=== PATIENT | male | born 1960 | race Caucasian/White ===

== ENCOUNTER 2017-03-27 20:26 | Emergency (ER) | payer OTHER ==
[2017-03-27 20:59] VITALS: BP 128/58; PULSE 63; RESP 18; TEMP 97.8
--- NOTE | 2017-03-27 21:21 | ED ---
Wound/Laceration HPI - General Chief Complaint: Wound/Laceration Stated Complaint: thumb lac Time Seen by Provider: 03/27/17 21:08 Source: patient, RN notes reviewed, old records reviewed Mode of arrival: ambulatory Limitations: no limitations - History of Present Illness Initial Comments: 56-year-old male presents emergency Department with right thumb laceration. Patient reports that he cut it while sharpening a knife. Denies any difficulty extending it. He reports his tetanus is up-to-date. Denies any nausea vomiting , chest pain, shortness of breath, other injury or laceration, abodiminal pain, dysuria, hematuria, back pain. - Related Data Home Medications Medication Instructions Recorded Confirmed HYDROcodone/APAP 7.5-325MG [[place] 1 tab PO Q8H PRN 06/02/16 03/27/17 7.5-325] Acetaminophen Tab [Tylenol] 1,000 mg PO Q6H 06/03/16 03/27/17 Escitalopram [Lexapro] 10 mg PO DAILY 06/03/16 03/27/17 Gabapentin [Neurontin] 300 mg PO TID 06/03/16 03/27/17 Ibuprofen [Motrin] 400 mg PO Q8H PRN 06/03/16 03/27/17 Lisinopril 40 mg PO DAILY 06/03/16 03/27/17 clonazePAM [KlonoPIN] 0.5 mg PO TID 06/03/16 03/27/17 Allergies Allergy/AdvReac Type Severity Reaction Status Date / Time No Known Allergies Allergy Verified 03/27/17 20:59 Review of Systems ROS Statement: Those systems with pertinent positive or pertinent negative responses have been documented in the HPI. ROS Other: All systems not noted in ROS Statement are negative. Past Medical History Past Medical History: Hypertension History of Any Multi-Drug Resistant Organisms: None Reported Past Surgical History: Appendectomy, Joint Replacement, Orthopedic Surgery Past Psychological History: Anxiety, Depression Smoking Status: Current every day smoker Past Alcohol Use History: Occasional Past Drug Use History: Marijuana General Exam - General Exam Comments Initial Comments: Pleasant 56-year-old male. No distress. Limitations: no limitations General appearance: alert, in no apparent distress Head exam: Present: atraumatic, normocephalic, normal inspection Eye exam: Present: normal appearance, PERRL, EOMI. Absent: scleral icterus, conjunctival injection, periorbital swelling ENT exam: Present: normal exam, mucous membranes moist Neck exam: Present: normal inspection. Absent: tenderness, meningismus, lymphadenopathy Respiratory exam: Present: normal lung sounds bilaterally. Absent: respiratory distress, wheezes, rales, rhonchi, stridor Cardiovascular Exam: Present: regular rate, normal rhythm, normal heart sounds. Absent: systolic murmur, diastolic murmur, rubs, gallop, clicks GI/Abdominal exam: Present: soft, normal bowel sounds. Absent: distended, tenderness, guarding, rebound, rigid Extremities exam: Present: normal inspection, full ROM, normal capillary refill , other (right thumb lacreation over DIP measuring 1.5 cm. Not deep, full range of motion, no tendon involvement. ). Absent: tenderness, pedal edema, joint swelling, calf tenderness Back exam: Present: normal inspection Neurological exam: Present: alert, oriented X3, CN II-XII intact Psychiatric exam: Present: normal affect, normal mood Skin exam: Present: warm, dry, intact, normal color. Absent: rash Course Vital Signs 03/27/17 20:55 Temperature 97.8 F Pulse Rate 63 Respiratory 18 Rate Blood Pressure 128/58 O2 Sat by Pulse 96 Oximetry Procedures - Laceration Laceration #1 Consent Obtained: verbal consent Site: hand (right thumb) Size (cm): 1 Depth: simple, single layer Anesthetic Used: benzocaine 0.25% Anesthesia Technique: local infiltration Amount (mls): 3 Pre-repair: wound explored, irrigated extensively Type of Sutures: nylon Size of Sutures: 5-0 Number of Sutures: 3 Technique: simple, interrupted Patient Tolerated Procedure: well, no complications Medical Decision Making - Medical Decision Making Patient is a 56 year old male with right thumb laceration. Up to date on tetanus. Full range of motion, no evidence of tendon involvment. patient wound was cleaned with betadine and irrigated. Wound was well approximated with 3 sutures. PAtient understands return parameters and will comply. Patient agrees to treatment plan. Disposition Clinical Impression: Thumb laceration Disposition: HOME SELF-CARE Condition: Good Instructions: Finger Laceration (ED) Additional Instructions: Please return to the emergency room in 8-10 days to have sutures removed. Please leave wound covered for the first 24-48 hours and then leave open to air after that time. Please use clean soap and water to clean the suture area to prevent scabbing over the top of your sutures. Please watch for any signs of infection which may include but not limited to increased pain, swelling, redness , fever or chills. Please return to the emergency room if any signs of infection do occur. Please return to the emergency room for any other concerns or complications. Referrals: Kyra Sumner MD [Primary Care Provider] - 1-2 days Time of Disposition: 21:20
== END 2017-03-27 21:36 | disposition home or self-care (01) ==
LOC: EC 20:26
DX: S61.011A Laceration without foreign body of right thumb without damage to nail, initial encounter (principal); I10 Essential (primary) hypertension; F32.9 Major depressive disorder, single episode, unspecified; F41.9 Anxiety disorder, unspecified; F17.200 Nicotine dependence, unspecified, uncomplicated; Z79.899 Other long term (current) drug therapy; W26.0XXA Contact with knife, initial encounter; Y93.89 Activity, other specified
CPT/HCPCS: 99283

== ENCOUNTER 2018-12-29 | Emergency (ER) | payer OTHER ==
[2018-12-29 00:09] VITALS: RESP 20
[2018-12-29 01:02] LABS: Basophils % (A) 0 %; Eosinophils # (A) 0.3 k/uL (0-0.7); Eosinophils % (A) 2 %; HCT 43.2 % (39.0-53.0); HGB 13.8 gm/dL (13.0-17.5); Lymphocytes % (A) 25 %; MCH 31.3 pg (25.0-35.0); MCHC 31.9 g/dL (31.0-37.0); MCV 98.1 fL (80.0-100.0); Mean Platelet Volume 6.9; Monocytes # (A) 0.4 k/uL (0-1.0); Monocytes % (A) 4 %; Neutrophils # (A) 8.2 k/uL (1.3-7.7); Neutrophils % (A) 68 %; Platelet Count 208 k/uL (150-450); RDW 12.9 % (11.5-15.5); WBC 12.1 k/uL (3.8-10.6)
[2018-12-29 01:17] LABS: ALT 36 U/L (21-72); AST 34 U/L (17-59); Acetaminophen <10.0 ug/mL; Alcohol 64 mg/dL; Alkaline Phosphatase 67 U/L (38-126); Anion Gap 12 mmol/L; Blood Urea Nitrogen 20 mg/dL (9-20); Calcium 8.8 mg/dL (8.4-10.2); Carbon Dioxide 23 mmol/L (22-30); Chloride 99 mmol/L (98-107); Glucose 190 mg/dL (74-99); Potassium 3.7 mmol/L (3.5-5.1); Salicylate <1.0 mg/dL; Sodium 134 mmol/L (137-145); Total Bilirubin 0.4 mg/dL (0.2-1.3); Total Protein 6.3 g/dL (6.3-8.2)
--- NOTE | 2018-12-29 01:56 | ED ---
Overdose HPI - General Chief Complaint: Overdose Stated Complaint: overdose Time Seen by Provider: 12/29/18 00:11 Source: patient Mode of arrival: EMS Limitations: no limitations - History of Present Illness Initial Comments: 58-year-old male patient is transported to the emergency department this evening after his son called for patient being unresponsive and having slow breathing. Upon EMS arrival patient was breathing only a few times per minute. They did administer Narcan which may patient more alert and responsive. Upon arrival patient does admit to drinking 4 "tall boy" beers, taking norco, and taking a oxycodone given to him by a family member. He does admit to smoking marijuana but denies any other street drug use. Patient states he is currently feeling well denies any physical concerns or symptoms. Patient denies any recent rash, fever, chills, shortness breath, chest pain, abdominal pain, nausea , vomiting, diarrhea, constipation, back pain, numbness, tingling, dizziness, weakness, hematuria, dysuria, urinary urgency, urinary frequency, headache, visual changes, or any other complaints. - Related Data Home Medications Medication Instructions Recorded Confirmed HYDROcodone/APAP 7.5-325MG [[place] 1 tab PO Q8H PRN 06/02/16 12/29/18 7.5-325] Acetaminophen Tab [Tylenol] 1,000 mg PO Q6H 06/03/16 12/29/18 Escitalopram [Lexapro] 10 mg PO DAILY 06/03/16 12/29/18 Gabapentin [Neurontin] 300 mg PO TID 06/03/16 12/29/18 Ibuprofen [Motrin] 400 mg PO Q8H PRN 06/03/16 12/29/18 Lisinopril 40 mg PO DAILY 06/03/16 12/29/18 clonazePAM [KlonoPIN] 0.5 mg PO TID 06/03/16 12/29/18 Allergies Allergy/AdvReac Type Severity Reaction Status Date / Time No Known Allergies Allergy Verified 03/27/17 20:59 Review of Systems ROS Statement: Those systems with pertinent positive or pertinent negative responses have been documented in the HPI. ROS Other: All systems not noted in ROS Statement are negative. Past Medical History Past Medical History: Hypertension History of Any Multi-Drug Resistant Organisms: None Reported Past Surgical History: Appendectomy, Joint Replacement, Orthopedic Surgery Past Psychological History: Anxiety, Depression Smoking Status: Current every day smoker Past Alcohol Use History: Occasional Past Drug Use History: Marijuana General Exam Limitations: no limitations General appearance: alert, in no apparent distress, other (Social well-developed , well-nourished adult male patient in no acute distress. Vital signs upon presentation are temperature 98.1F, pulse 75, respirations 20, blood pressure 134/74, pulse ox 93% on room air.) Eye exam: Present: normal appearance, PERRL, EOMI. Absent: scleral icterus, conjunctival injection, periorbital swelling ENT exam: Present: normal exam, normal oropharynx, mucous membranes moist Respiratory exam: Present: wheezes (Expiratory wheezing in the posterior lung espinal). Absent: normal lung sounds bilaterally, respiratory distress, rales, rhonchi, stridor Cardiovascular Exam: Present: regular rate, normal rhythm, normal heart sounds. Absent: systolic murmur, diastolic murmur, rubs, gallop, clicks GI/Abdominal exam: Present: soft, normal bowel sounds. Absent: distended, tenderness, guarding, rebound, rigid Neurological exam: Present: alert, oriented X3, CN II-XII intact Psychiatric exam: Present: normal affect, normal mood Skin exam: Present: warm, dry, intact, normal color. Absent: rash Course Vital Signs 12/29/18 12/29/18 00:05 02:17 Temperature 98.1 F 98.2 F Pulse Rate 75 76 Respiratory 20 20 Rate Blood Pressure 134/74 135/80 O2 Sat by Pulse 93 L 95 Oximetry Medical Decision Making - Medical Decision Making 58-year-old male patient presented to the emergency department today for evaluation after son called for decreased responsiveness and slow breathing. Physical examination was unremarkable. Patient did admit to taking multiple opiate medications and drinking alcohol. He did become more alert and responsive after receiving Narcan via EMS. Patient was monitored here in the emergency department, remained alert and appropriate throughout stay. Labs reviewed and are unremarkable. Daughter is present will transport patient home. Patient is advised to avoid mixing opiates and alcohol. He is instructed take all the medications prescribed to him. He is instructed to follow-up with his primary care physician for recheck in 1-2 days. Return parameters were discussed in detail. He verbalizes understanding and agrees with this plan. - Lab Data Result diagrams: 12/29/18 00:49 12/29/18 00:49 Lab Results 12/29/18 12/29/18 Range/Units 00:49 00:49 WBC 12.1 H (3.8-10.6) k/uL RBC 4.40 (4.30-5.90) m/uL Hgb 13.8 (13.0-17.5) gm/dL Hct 43.2 (39.0-53.0) % MCV 98.1 (80.0-100.0) fL MCH 31.3 (25.0-35.0) pg MCHC 31.9 (31.0-37.0) g/dL RDW 12.9 (11.5-15.5) % Plt Count 208 (150-450) k/uL Neutrophils % 68 % Lymphocytes % 25 % Monocytes % 4 % Eosinophils % 2 % Basophils % 0 % Neutrophils # 8.2 H (1.3-7.7) k/uL Lymphocytes # 3.0 (1.0-4.8) k/uL Monocytes # 0.4 (0-1.0) k/uL Eosinophils # 0.3 (0-0.7) k/uL Basophils # 0.0 (0-0.2) k/uL Sodium 134 L (137-145) mmol/L Potassium 3.7 (3.5-5.1) mmol/L Chloride 99 (98-107) mmol/L Carbon Dioxide 23 (22-30) mmol/L Anion Gap 12 mmol/L BUN 20 (9-20) mg/dL Creatinine 1.00 (0.66-1.25) mg/dL Est GFR (CKD-EPI)AfAm >90 (>60 ml/min/1.73 sqM) Est GFR (CKD-EPI)NonAf 82 (>60 ml/min/1.73 sqM) Glucose 190 H (74-99) mg/dL Calcium 8.8 (8.4-10.2) mg/dL Total Bilirubin 0.4 (0.2-1.3) mg/dL AST 34 (17-59) U/L ALT 36 (21-72) U/L Alkaline Phosphatase 67 (38-126) U/L Total Protein 6.3 (6.3-8.2) g/dL Albumin 4.0 (3.5-5.0) g/dL Salicylates <1.0 mg/dL Acetaminophen <10.0 ug/mL Serum Alcohol 64 mg/dL Disposition Clinical Impression: Accidental overdose Disposition: HOME SELF-CARE Condition: Good Instructions (If sedation given, give patient instructions): Adult Overdose (ED ) Additional Instructions: Do not mix opiate medications and alcohol. Take only medication prescribed to you. Follow up with your primary care physician for recheck in 1-2 days. Return to the emergency department immediately for any new, worsening, or concerning symptoms. Is patient prescribed a controlled substance at d/c from ED?: No Referrals: Kyra Sumner MD [Primary Care Provider] - 1-2 days Time of Disposition: 01:56
[2018-12-29 02:18] VITALS: BP 135/80; PULSE 76; TEMP 98.2
== END 2018-12-29 02:19 | disposition home or self-care (01) ==
LOC: EC
DX: T40.2X1A Poisoning by other opioids, accidental (unintentional), initial encounter (principal); T39.1X1A Poisoning by 4-Aminophenol derivatives, accidental (unintentional), initial encounter; T51.91XA Toxic effect of unspecified alcohol, accidental (unintentional), initial encounter; R06.2 Wheezing; I10 Essential (primary) hypertension; F32.9 Major depressive disorder, single episode, unspecified; F41.9 Anxiety disorder, unspecified; F17.200 Nicotine dependence, unspecified, uncomplicated; Z79.891 Long term (current) use of opiate analgesic; Z79.899 Other long term (current) drug therapy
CPT/HCPCS: 36415; 93005; 80053; 85025; 83520 ×2; 99284; G0480; 80320

== ENCOUNTER 2021-04-11 08:33 | Emergency (ER) | payer OTHER ==
[2021-04-11 08:45] VITALS: BP 134/79; TEMP 96.4
[2021-04-11] MEDS ORDERED: IPRATROPIUM-ALBUTEROL 3 ML NEB INHALATION STA (08:55)
--- NOTE | 2021-04-11 09:00 | ED ---
Overdose HPI - General Chief Complaint: Overdose Stated Complaint: Possible Overdose Time Seen by Provider: 04/11/21 08:44 Source: patient, EMS, RN notes reviewed Mode of arrival: EMS Limitations: no limitations - History of Present Illness Initial Comments: This a 60-year-old male presents emergency department via EMS for heroin overdose. Patient admitted to using heroin this morning, states he snorted it. Patient was given intranasal Narcan which the patient was arousable at that time now. Patient states that heavy smoker states that he always has chronic wheezing. Denies any chest pain no headache no dizziness denies any other complaints. Patient denies being suicidal or homicidal. - Related Data Home Medications Medication Instructions Recorded Confirmed HYDROcodone/APAP 7.5-325MG [[place] 1 tab PO Q8H PRN 06/02/16 12/29/18 7.5-325] Acetaminophen Tab [Tylenol] 1,000 mg PO Q6H 06/03/16 12/29/18 Escitalopram [Lexapro] 10 mg PO DAILY 06/03/16 12/29/18 Gabapentin [Neurontin] 300 mg PO TID 06/03/16 12/29/18 Ibuprofen [Motrin] 400 mg PO Q8H PRN 06/03/16 12/29/18 clonazePAM [KlonoPIN] 0.5 mg PO TID 06/03/16 12/29/18 lisinopriL 40 mg PO DAILY 06/03/16 12/29/18 Allergies Allergy/AdvReac Type Severity Reaction Status Date / Time No Known Allergies Allergy Verified 04/11/21 08:45 Review of Systems ROS Statement: Those systems with pertinent positive or pertinent negative responses have been documented in the HPI. ROS Other: All systems not noted in ROS Statement are negative. Past Medical History Past Medical History: Hypertension History of Any Multi-Drug Resistant Organisms: None Reported Past Surgical History: Appendectomy, Joint Replacement, Orthopedic Surgery Past Psychological History: Anxiety, Depression Smoking Status: Current every day smoker Past Alcohol Use History: Abuse, Occasional Past Drug Use History: Heroin, Marijuana General Exam Limitations: no limitations General appearance: alert, in no apparent distress, other (Patient awake and alert) Head exam: Present: atraumatic, normocephalic, normal inspection ENT exam: Present: normal exam, normal oropharynx, mucous membranes moist Neck exam: Present: normal inspection, full ROM. Absent: tenderness, meningismus, lymphadenopathy Respiratory exam: Present: wheezes (Bilateral throughout). Absent: normal lung sounds bilaterally, respiratory distress, rales, rhonchi, stridor Cardiovascular Exam: Present: regular rate, normal rhythm, normal heart sounds. Absent: systolic murmur, diastolic murmur, rubs, gallop, clicks Neurological exam: Present: alert, oriented X3, CN II-XII intact, reflexes normal. Absent: motor sensory deficit Skin exam: Present: warm, dry, intact, normal color. Absent: rash Course Vital Signs 04/11/21 04/11/21 04/11/21 08:36 09:08 09:22 Temperature 96.4 F L Pulse Rate 78 95 100 Respiratory 18 22 22 Rate Blood Pressure 134/79 O2 Sat by Pulse 97 Oximetry Medical Decision Making - Medical Decision Making Patient presented for heroin overdose. Patient has been observed for over one hour he is awake alert and orientated will be discharged stable condition. Disposition Clinical Impression: Accidental drug overdose, Heroin overdose Disposition: HOME SELF-CARE Condition: Stable Instructions (If sedation given, give patient instructions): Adult Overdose (ED) Additional Instructions: Please return to the Emergency Department if symptoms worsen or any other concerns. Is patient prescribed a controlled substance at d/c from ED?: No Referrals: Kyra Sumner MD [Primary Care Provider] - 1-2 days Time of Disposition: 09:55
[2021-04-11 09:11] VITALS: RESP 22
[2021-04-11 09:23] VITALS: PULSE 100
== END 2021-04-11 10:21 | disposition home or self-care (01) ==
LOC: EC 08:33
DX: T40.1X1A Poisoning by heroin, accidental (unintentional), initial encounter (principal); I10 Essential (primary) hypertension; F17.200 Nicotine dependence, unspecified, uncomplicated; F32.9 Major depressive disorder, single episode, unspecified; F12.90 Cannabis use, unspecified, uncomplicated; Z90.89 Acquired absence of other organs
CPT/HCPCS: 94640; 99285

== ENCOUNTER 2021-04-11 12:34 | Inpatient (IN) | payer OTHER ==
[2021-04-11] MEDS ORDERED: SODIUM CHLORIDE 0.9% 1,000 ML IV STA (13:11)
--- NOTE | 2021-04-11 13:14 | ED ---
General Adult HPI - General Chief complaint: Psychiatric Symptoms Stated complaint: confusion Time Seen by Provider: 04/11/21 12:43 Source: patient, RN notes reviewed, old records reviewed Mode of arrival: ambulatory Limitations: no limitations - History of Present Illness Initial comments: Patient is a pleasant 60-year-old male presenting to the emergency Department with concerns for altered mental status. Patient was recently in the hospital for her when overdose. Patient states this was only a second time is done here when and did started. Patient does not recall the events around this time but denies any injury. Patient was released and went across the street. Patient reportedly was stumbling and confused. Patient states he does feel a little bit foggy just because he is tired. Patient states she normally does not always know the year and when questioned he originally states 2000, when questioned again he states 2020. Patient is able to answer the month correctly. - Related Data Home Medications Medication Instructions Recorded Confirmed Escitalopram [Lexapro] 10 mg PO DAILY 06/03/16 04/11/21 Gabapentin [Neurontin] 300 mg PO TID 06/03/16 04/11/21 clonazePAM [KlonoPIN] 0.5 mg PO TID 06/03/16 04/11/21 lisinopriL 40 mg PO DAILY 06/03/16 04/11/21 Allergies Allergy/AdvReac Type Severity Reaction Status Date / Time No Known Allergies Allergy Verified 04/11/21 12:44 Review of Systems ROS Statement: Those systems with pertinent positive or pertinent negative responses have been documented in the HPI. ROS Other: All systems not noted in ROS Statement are negative. Constitutional: Denies: fever Eyes: Denies: eye pain ENT: Denies: ear pain Respiratory: Denies: cough Cardiovascular: Denies: chest pain Endocrine: Denies: fatigue Gastrointestinal: Denies: abdominal pain Genitourinary: Denies: dysuria Musculoskeletal: Denies: back pain Skin: Denies: rash Neurological: Reports: as per HPI, confusion. Denies: headache, weakness Past Medical History Past Medical History: Hypertension History of Any Multi-Drug Resistant Organisms: None Reported Past Surgical History: Appendectomy, Joint Replacement, Orthopedic Surgery Past Psychological History: Anxiety, Depression Smoking Status: Current every day smoker Past Alcohol Use History: Abuse, Occasional Past Drug Use History: Heroin, Marijuana General Exam Limitations: no limitations General appearance: alert, in no apparent distress Head exam: Present: normocephalic Eye exam: Present: normal appearance, PERRL, EOMI. Absent: nystagmus ENT exam: Present: normal oropharynx Neck exam: Present: normal inspection Respiratory exam: Present: normal lung sounds bilaterally Cardiovascular Exam: Present: regular rate, normal rhythm GI/Abdominal exam: Present: soft. Absent: tenderness Extremities exam: Present: normal inspection, full ROM. Absent: tenderness Neurological exam: Present: alert, oriented X3, CN II-XII intact. Absent: motor sensory deficit Expanded Neurological exam: Present: protecting the airway Patient oriented to: Present: person, place Speech: Present: fluid speech Cranial nerves: EOM's Intact: Normal, Facial Sensation: Normal Sensory exam: Upper Extremity Light Touch: Normal, Lower Extremity Light Touch: Normal Motor strength exam: RUE: 5, LUE: 5, RLE: 5, LLE: 5 Eye Response: (4) open spontaneously Motor Response: (6) obeys commands Verbal Response: (5) oriented Psychiatric exam: Present: normal affect, normal mood Skin exam: Present: normal color Course Vital Signs 04/11/21 04/11/21 04/11/21 12:40 14:00 15:00 Temperature 98.8 F Pulse Rate 89 76 79 Respiratory 16 16 15 Rate Blood Pressure 144/88 117/64 94/62 O2 Sat by Pulse 96 96 96 Oximetry EKG Findings - EKG Comments: EKG Findings:: Normal sinus rhythm with a rate of 78. [place] 118. QRS 86. QT 396. QTc 451. Normal axis. Normal QRS. No acute ST change. Medical Decision Making - Medical Decision Making Patient reevaluated and unchanged. Patient still denies any chest discomfort. Patient updated on results and plan. Case was discussed in detail with Dr. Sumner who does agree with admission and cardiology consult. He recommends holding heparin until evaluated by cardiology. - Lab Data Result diagrams: 04/11/21 13:25 04/11/21 13:25 Lab Results 04/11/21 04/11/21 04/11/21 Range/Units 13:25 13:25 13:25 WBC 7.7 (3.8-10.6) k/uL RBC 4.88 (4.30-5.90) m/uL Hgb 15.9 (13.0-17.5) gm/dL Hct 48.9 (39.0-53.0) % MCV 100.2 H (80.0-100.0) fL MCH 32.5 (25.0-35.0) pg MCHC 32.4 (31.0-37.0) g/dL RDW 14.1 (11.5-15.5) % Plt Count 233 (150-450) k/uL MPV 8.0 Neutrophils % 80 % Lymphocytes % 13 % Monocytes % 6 % Eosinophils % 0 % Basophils % 0 % Neutrophils # 6.2 (1.3-7.7) k/uL Lymphocytes # 1.0 (1.0-4.8) k/uL Monocytes # 0.5 (0-1.0) k/uL Eosinophils # 0.0 (0-0.7) k/uL Basophils # 0.0 (0-0.2) k/uL Macrocytosis Slight PT 9.4 (9.0-12.0) sec INR 0.9 (<1.2) APTT 20.9 L (22.0-30.0) sec Sodium 130 L (137-145) mmol/L Potassium 4.6 (3.5-5.1) mmol/L Chloride 93 L (98-107) mmol/L Carbon Dioxide 23 (22-30) mmol/L Anion Gap 14 mmol/L BUN 26 H (9-20) mg/dL Creatinine 1.42 H (0.66-1.25) mg/dL Est GFR (CKD-EPI)AfAm 62 (>60 ml/min/1.73 sqM) Est GFR (CKD-EPI)NonAf 53 (>60 ml/min/1.73 sqM) Glucose 129 H (74-99) mg/dL Calcium 8.9 (8.4-10.2) mg/dL Total Bilirubin 0.3 (0.2-1.3) mg/dL AST 284 H (17-59) U/L ALT 68 H (4-49) U/L Alkaline Phosphatase 97 (38-126) U/L Troponin I (0.000-0.034) ng/mL Total Protein 6.5 (6.3-8.2) g/dL Albumin 4.3 (3.5-5.0) g/dL 04/11/21 Range/Units 13:25 WBC (3.8-10.6) k/uL RBC (4.30-5.90) m/uL Hgb (13.0-17.5) gm/dL Hct (39.0-53.0) % MCV (80.0-100.0) fL MCH (25.0-35.0) pg MCHC (31.0-37.0) g/dL RDW (11.5-15.5) % Plt Count (150-450) k/uL MPV Neutrophils % % Lymphocytes % % Monocytes % % Eosinophils % % Basophils % % Neutrophils # (1.3-7.7) k/uL Lymphocytes # (1.0-4.8) k/uL Monocytes # (0-1.0) k/uL Eosinophils # (0-0.7) k/uL Basophils # (0-0.2) k/uL Macrocytosis PT (9.0-12.0) sec INR (<1.2) APTT (22.0-30.0) sec Sodium (137-145) mmol/L Potassium (3.5-5.1) mmol/L Chloride (98-107) mmol/L Carbon Dioxide (22-30) mmol/L Anion Gap mmol/L BUN (9-20) mg/dL Creatinine (0.66-1.25) mg/dL Est GFR (CKD-EPI)AfAm (>60 ml/min/1.73 sqM) Est GFR (CKD-EPI)NonAf (>60 ml/min/1.73 sqM) Glucose (74-99) mg/dL Calcium (8.4-10.2) mg/dL Total Bilirubin (0.2-1.3) mg/dL AST (17-59) U/L ALT (4-49) U/L Alkaline Phosphatase (38-126) U/L Troponin I 0.112 H* (0.000-0.034) ng/mL Total Protein (6.3-8.2) g/dL Albumin (3.5-5.0) g/dL - Radiology Data Radiology results: report reviewed (ET scan of the brain reveals atrophy and chronic changes without acute abnormality.), image reviewed (Chest x-ray shows no acute process.) Disposition Clinical Impression: Altered mental status Disposition: ADMITTED IP TO THIS HOSP Is patient prescribed a controlled substance at d/c from ED?: No Referrals: yKra Sumner MD [Primary Care Provider] - 1-2 days Decision Time: 15:04
--- NOTE | 2021-04-11 13:43 | CT ---
EXAMINATION TYPE: CT brain wo con DATE OF EXAM: 04/11/2021 COMPARISON: None HISTORY: Altered mental status. CT DLP: 1099.4 mGycm Automated exposure control for dose reduction was used. Helical imaging through the brain. FINDINGS: There is no hemorrhage or hydrocephalus. Artifact is present on the exam. Mild cortical atrophy is li ravindra age-related. Periventricular white matter shows patchy low attenuation. Calvarium is intact. Inf lammatory changes are present in the bilateral maxillary sinuses, ethmoid air cells. IMPRESSION: NO ACUTE ABNORMALITIES EVIDENT. SUSPECT AGE RELATED ATROPHY AND CHRONIC SMALL VESSEL ISCHEMIC CHANGE
[2021-04-11 13:44] LABS: Albumin 4.3 g/dL (3.5-5.0); Calcium 8.9 mg/dL (8.4-10.2); Potassium 4.6 mmol/L (3.5-5.1); Total Bilirubin 0.3 mg/dL (0.2-1.3); Total Protein 6.5 g/dL (6.3-8.2)
--- NOTE | 2021-04-11 13:46 | XR ---
EXAMINATION TYPE: XR chest 2V DATE OF EXAM: 04/11/2021 COMPARISON: NONE HISTORY: Confusion and weakness. TECHNIQUE: Frontal and lateral views of the chest are obtained. FINDINGS: There are chronic parenchymal changes thought present bilaterally without suspicious air s pace opacity, pleural effusion, or pneumothorax seen. Asymmetric right upper lung scarring is still present. The cardiac silhouette size is within normal limits. The osseous structures are deminerali zed. Surgical change right shoulder is partially imaged. IMPRESSION: Chronic parenchymal changes without acute pulmonary process.
[2021-04-11 13:56] LABS: INR 0.9 (<1.2); Prothrombin Time 9.4 sec (9.0-12.0)
[2021-04-11 14:09] LABS: Basophils % (A) 0 %; Eosinophils % (A) 0 %; HCT 48.9 % (39.0-53.0); HGB 15.9 gm/dL (13.0-17.5); Lymphocytes % (A) 13 %; MCH 32.5 pg (25.0-35.0); MCHC 32.4 g/dL (31.0-37.0); MCV 100.2 fL (80.0-100.0); Macrocytosis Slight; Monocytes # (A) 0.5 k/uL (0-1.0); Monocytes % (A) 6 %; Neutrophils # (A) 6.2 k/uL (1.3-7.7); Neutrophils % (A) 80 %; Platelet Count 233 k/uL (150-450); RBC 4.88 m/uL (4.30-5.90); RDW 14.1 % (11.5-15.5); WBC 7.7 k/uL (3.8-10.6)
[2021-04-11 14:17] LABS: Partial Thromboplastin Time 20.9 sec (22.0-30.0)
[2021-04-11] MEDS ORDERED: SODIUM CHLORIDE 0.9% 500 ML 500 ML IV STA (14:21)
[2021-04-11] MEDS ORDERED: NITROGLYCERIN SL TABS 0.4 MG TAB SUBLINGUAL PRN (15:04)
[2021-04-11] MEDS ORDERED: ASPIRIN 81 MG PO STA (15:04)
[2021-04-11 17:17] LABS: ABG Base Excess 0.2 mmol/L; ABG HCO3 28 mmol/L (21-25); ABG Oxygen Saturation 85.2 % (94-97); ABG PH 7.21 (7.35-7.45); ABG PO2 60 mmHg (83-108); ABG TCO2 30 mmol/L (19-24); Allen Test Performed? Yes
[2021-04-11 17:21] LABS: ABG PCO2 71 mmHg (35-45)
[2021-04-11] MEDS ORDERED: HEPARIN SODIUM 1,000 UN/ML (10ML VL) IV PRN (17:29)
[2021-04-11] MEDS ORDERED: HEPARIN SODIUM 1,000 UN/ML (10ML VL) IV ONE (17:29)
[2021-04-11] MEDS ORDERED: HEPARIN SOD,PORK IN 0.45% NACL 25,000 UNIT in 0.45% NACL 1 250ML.BAG IV SCH (17:30)
[2021-04-11] MEDS: clonazePAM 0.5 MG TAB PO SCH ×2 (18:15→22:36)
[2021-04-11] MEDS: ESCITALOPRAM 10 MG TAB PO SCH (18:16)
[2021-04-11] MEDS: lisinopriL 20 MG TAB PO SCH (18:16)
[2021-04-11] MEDS: GABAPENTIN 300 MG CAP PO SCH ×2 (18:16→22:36)
--- NOTE | 2021-04-11 19:10 | CT ---
EXAMINATION TYPE: CT angio chest DATE OF EXAM: 04/11/2021 COMPARISON: Radiograph same day HISTORY: 60-year-old male dyspnea, shortness of breath. TECHNIQUE: Contiguous axial scanning of the chest performed with IV Contrast, patient injected with 1 00 mL of Isovue 300. Coronal/sagittal MIP reconstructions performed. CT DLP: 341.7 mGycm Automated exposure control for dose reduction was used. FINDINGS: The heart is normal size without pericardial effusion. No flattening of the interventricular septum o r reflux of contrast into the hepatic veins. Aorta normal caliber with mild active cardiac arch calcifications in dimension arch vessel branching anatomy. Precarinal lymph node measures 1.1 cm, likely reactive. Calcified right hilar and subcarinal lymph no randal compatible with prior granulomatous disease. Satisfactory opacification of the pulmonary arterial system without evidence for pulmonary embolus. Background of moderate centrilobular emphysema. Areas of peribronchovascular groundglass opacities an d some early consolidation. No pleural effusion. Prominent fluid within the stomach questionable annular thickening and narrowing at the gastric antru m, axial image 155 and coronal image 35. Bones: Moderate to severe degenerative change of the left shoulder. Status post right shoulder arthro plasty. Accentuated lower thoracic kyphosis with mild to moderate degenerative disc disease. IMPRESSION: 1. NO EVIDENCE FOR PULMONARY EMBOLUS. 2. COPD WITH MODERATE EMPHYSEMA. MULTIFOCAL AREAS OF PERIBRONCHOVASCULAR GROUNDGLASS AND EARLY CONSOL IDATION IN BOTH LUNGS. CORRELATE FOR POSSIBLE ETIOLOGIES SUCH MULTIFOCAL PNEUMONIA, COVID PNEUMONI A, INTERSTITIAL PNEUMONITIS, AND HYPERSENSITIVITY PNEUMONITIS. 3. QUESTIONABLE ANNULAR THICKENING AND NARROWING OF THE ANTRUM OF THE STOMACH, PARTIALLY VISUALIZED. APPROPRIATE GI REFERRAL CAN BE PERFORMED AND DIRECT VISUALIZATION TO EXCLUDE THE POSSIBILITY OF A MAS S IF THE PATIENT IS SYMPTOMATIC.
[2021-04-11] MEDS ORDERED: LORazepam 2 MG/ML INJ IV PRN ×2 (22:21)
[2021-04-11] MEDS ORDERED: THIAMINE 100 MG/ML 2 ML VIAL IM STA (22:21)
[2021-04-11] MEDS: NICOTINE 21MG/24HR PATCH TRANSDERM SCH (22:36)
[2021-04-11] MEDS: THIAMINE 100 MG TAB PO SCH (22:37)
[2021-04-12 03:52] LABS: HCT 44.6 % (39.0-53.0); HGB 14.5 gm/dL (13.0-17.5); MCH 33.1 pg (25.0-35.0); MCHC 32.5 g/dL (31.0-37.0); MCV 101.9 fL (80.0-100.0); Macrocytosis Slight; Mean Platelet Volume 7.7; Platelet Count 161 k/uL (150-450); RBC 4.37 m/uL (4.30-5.90); RDW 14.1 % (11.5-15.5); WBC 4.4 k/uL (3.8-10.6)
[2021-04-12 03:56] LABS: INR 0.9 (<1.2); Partial Thromboplastin Time 42.7 sec (22.0-30.0); Prothrombin Time 9.5 sec (9.0-12.0)
[2021-04-12 05:14] LABS: Band Neutrophils % 34 %; Lymphocytes # (M) 0.53 k/uL (1.0-4.8); Metamyelocytes # (M) 0.26 k/uL (0); Metamyelocytes % 6 %; Monocytes # (M) 0.48 k/uL (0-1.0); Myelocytes # (M) 0.04 k/uL (0); Myelocytes % 1 %; Neutrophils % (M) 39 %; Nucleated Red Blood Cells 0 /100 WBC (0-0); Total Cells Counted 200
[2021-04-12] MEDS: THIAMINE 100 MG TAB PO SCH ×2 (06:37→15:53)
[2021-04-12] MEDS ORDERED: ASPIRIN 325 MG TAB PO SCH (09:00)
[2021-04-12] MEDS ORDERED: ASPIRIN 81 MG PO SCH (09:00)
--- NOTE | 2021-04-12 09:47 | P.CRDCN ---
History of Present Illness Consult date: 04/12/21 History of present illness: HISTORY OF PRESENT ILLNESS: This is a 60-year-old male with a past medical history significant for hypertension, nicotine dependence, COPD, alcohol abuse, and Heroin use. 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 We have been asked to see the patient in consultation for abnormal troponins. Patient examined at the bedside. Patient was evaluated in the ER on the morning of 04/11/2021 secondary to a Heroin overdose. Patient was given intranasal Narcan. Patient states this was a suicide attempt. Patient was discharged from the emergency room. Patient states he walked across the street and was sitting down smoking a cigarette. Patient states he tried to get up after he finished cigarette and felt like his legs were very weak and he felt unsteady. Patient reports he decided to smoke another cigarette because he thought this would help with this unsteadiness. Patient reports the next thing he remembers was the police by his side questioning him. Patient states he felt foggy and was unable to answer ques tions correctly such as what year it was and the police brought him back to the hospital for evaluation. Patient denies chest pain or pressure. Patient denies shortness of breath. Denies dizziness or lightheadedness. EKG reveals sinus mechanism with no signs of acute ischemia Chest xray chronic parenchymal changes without acute pulmonary process Laboratory data: WBC 4.4. Hemoglobin 14.5. Platelet count 161. Sodium 130. Potassium 4.6. BUN 26. Creatinine 1.42. AST 284. ALT 68. Troponin 0.112. 0.127. 0.122. Current home cardiac medications include lisinopril 40 mg daily REVIEW OF SYSTEMS: At the time of my exam: CONSTITUTIONAL: Denies fever or chills. HEENT: Denies blurred vision, vision changes, or eye pain. Denies hemoptysis CARDIOVASCULAR: Denies chest pain. Denies orthopnea. Denies PND. Denies palpitations RESPIRATORY: Denies shortness of breath. GASTROINTESTINAL: Denies abdominal pain. Denies nausea or vomiting. HEMATOLOGIC: Denies bleeding disorders. GENITOURINARY: Denies any blood in urine. SKIN: Denies pruitis. Denies rash. PHYSICAL EXAM: VITAL SIGNS: Reviewed. GENERAL: Well-developed in no acute distress. HEENT: Head is normocephalic. Pupils are equal, round. Sclerae anicteric. Mucous membranes of the mouth are moist. Neck supple. No JVD or thyromegaly LUNGS: Respirations even and unlabored. Lungs essentially clear to auscultation bilaterally. HEART: Regular rate and rhythm. S1 and S2 heard. ABDOMEN: Soft. Nondistended. Nontender. EXTREMITIES: Normal range of motion. No clubbing or cyanosis. Peripheral pulses intact. No lower extremity edema NEUROLOGIC: Awake and alert. Oriented x 3. ASSESSMENT: Recent heroin overdose; suicide attempt Acute hypercapnic respiratory failure Acute encephalopathy Abnormal troponins, flat, not suggestive of acute coronary syndrome Hypertension Nicotine dependence, patient smokes 1. 52 packs per day Alcohol abuse Heroin use PLAN: An acute coronary event has been ruled out Obtain 2-D echo to assess cardiac structure and function Wean oxygen as tolerated Resume cardiac medications including lisinopril Encourage smoking cessation Encourage abstinence from alcohol Encouraged patient to avoid drug use Social work consulted for suicidal ideation Further recommendations pending patient course Nurse practitioner note has been reviewed by physician. Signing provider agrees with the documented findings, assessment, and plan of care. Past Medical History Past Medical History: Hypertension History of Any Multi-Drug Resistant Organisms: None Reported Past Surgical History: Appendectomy, Joint Replacement, Orthopedic Surgery Past Psychological History: Anxiety, Depression Smoking Status: Current every day smoker Past Alcohol Use History: Abuse, Occasional Past Drug Use History: Heroin, Marijuana - Past Family History Father History Unknown: Yes Mother History Unknown: Yes Medications and Allergies Home Medications Medication Instructions Recorded Confirmed Type Escitalopram [Lexapro] 10 mg PO DAILY 06/03/16 04/11/21 History Gabapentin [Neurontin] 300 mg PO TID 06/03/16 04/11/21 History clonazePAM [KlonoPIN] 0.5 mg PO TID 06/03/16 04/11/21 History lisinopriL 40 mg PO DAILY 06/03/16 04/11/21 History Allergies Allergy/AdvReac Type Severity Reaction Status Date / Time No Known Allergies Allergy Verified 04/11/21 12:44 Physical Exam Vitals: Vital Signs Temp Pulse Pulse Resp BP BP Pulse Ox 04/12/21 04:10 98 F 79 17 166/75 98 04/12/21 00:35 99 F 73 17 140/57 97 04/11/21 21:30 98.2 F 78 18 154/73 93 L 04/11/21 21:10 98.4 F 68 18 139/59 98 04/11/21 20:00 66 20 111/82 97 04/11/21 18:00 98 F 72 12 136/71 94 L 04/11/21 17:00 82 13 123/59 95 04/11/21 16:00 97 16 134/74 95 04/11/21 15:00 79 15 94/62 96 04/11/21 14:00 76 16 117/64 96 04/11/21 12:40 98.8 F 89 16 144/88 96 Intake and Output 04/11/21 04/12/21 04/12/21 22:59 06:59 14:59 Intake Total 65.092 240 Output Total 1000 Balance -934.908 240 Intake: Intake, IV Titration 65.092 Amount Heparin Sod,Pork in 0.45% 65.092 NaCl 25,000 unit In 0.45 % NaCl 1 250ml.bag @ 12 UNITS/KG/HR 6.804 mls/hr IV .Q24H [facility] Rx#: [id number] Oral 240 Output: Urine 1000 Other: Voiding Method Urinal Urinal Weight 56.699 kg 55.6 kg Results 04/12/21 02:43 04/11/21 13:25 Cardiac Enzymes 04/11/21 04/11/21 04/11/21 Range/Units 13:25 13:25 16:35 AST 284 H (17-59) U/L Troponin I 0.112 H* 0.127 H* (0.000-0.034) ng/mL 04/11/21 Range/Units 20:53 AST (17-59) U/L Troponin I 0.122 H* (0.000-0.034) ng/mL Coagulation 04/11/21 04/12/21 Range/Units 13:25 02:43 PT 9.4 9.5 (9.0-12.0) sec APTT 20.9 L 42.7 H (22.0-30.0) sec CBC 04/11/21 04/12/21 Range/Units 13:25 02:43 WBC 7.7 4.4 (3.8-10.6) k/uL RBC 4.88 4.37 (4.30-5.90) m/uL Hgb 15.9 14.5 (13.0-17.5) gm/dL Hct 48.9 44.6 (39.0-53.0) % Plt Count 233 161 (150-450) k/uL Comprehensive Metabolic Panel 04/11/21 Range/Units 13:25 Sodium 130 L (137-145) mmol/L Potassium 4.6 (3.5-5.1) mmol/L Chloride 93 L (98-107) mmol/L Carbon Dioxide 23 (22-30) mmol/L BUN 26 H (9-20) mg/dL Creatinine 1.42 H (0.66-1.25) mg/dL Glucose 129 H (74-99) mg/dL Calcium 8.9 (8.4-10.2) mg/dL AST 284 H (17-59) U/L ALT 68 H (4-49) U/L Alkaline Phosphatase 97 (38-126) U/L Total Protein 6.5 (6.3-8.2) g/dL Albumin 4.3 (3.5-5.0) g/dL Current Medications Generic Name Dose Route Start Last Admin Trade Name Freq PRN Reason Stop Dose Admin Aspirin 81 mg 04/12/21 09:00 Aspirin 81 Mg PO DAILY [facility] Clonazepam 0.5 mg 04/11/21 17:30 04/11/21 22:36 Clonazepam 0.5 Mg Tab PO 0.5 mg TID GOPAL Administration Escitalopram Oxalate 10 mg 04/11/21 17:30 04/11/21 18:16 Escitalopram 10 Mg Tab PO Not Given DAILY GOPAL Gabapentin 300 mg 04/11/21 17:30 04/11/21 22:36 Gabapentin 300 Mg Cap PO 300 mg TID [facility]AL Administration Heparin Sodium (Porcine) 0 unit 04/11/21 17:29 04/12/21 04:17 Heparin Sodium 1,000 Un/Ml (10ml Vl) IV 500 unit PER PROTOCOL PRN Administration Low PTT Protocol Lisinopril 40 mg 04/11/21 17:30 04/11/21 18:16 Lisinopril 20 Mg Tab PO Not Given DAILY GOPAL Lorazepam 1 mg 04/11/21 22:21 Lorazepam 2 Mg/Ml Inj IV Q2HR PRN CIWA 8 or 9 Lorazepam 1 mg 04/11/21 22:21 Lorazepam 2 Mg/Ml Inj IV Q1HR PRN CIWA 10 to 15 Lorazepam 2 mg 04/11/21 22:21 Lorazepam 2 Mg/Ml Inj IV 04/13/21 22:21 Q10M PRN CIWA 16 or higher Nicotine 1 patch 04/11/21 22:30 04/11/21 22:36 Nicotine 21mg/24hr Patch TRANSDERM 1 patch DAILY GOPAL Administration Nitroglycerin 0.4 mg 04/11/21 15:04 Nitroglycerin Sl Tabs 0.4 Mg Tab SUBLINGUAL Q5M PRN Chest Pain Sodium Chloride 10 ml 04/11/21 21:00 04/11/21 22:37 Sodium Chloride 0.9% Flush 10 Ml Syringe IV 10 ml BID GOPAL Administration Thiamine HCl 100 mg 04/11/21 22:30 04/12/21 06:37 Thiamine 100 Mg Tab PO 100 mg BID-W/MEALS GOPAL Administration Intake and Output 04/11/21 04/12/21 04/12/21 22:59 06:59 14:59 Intake Total 65.092 240 Output Total 1000 Balance -934.908 240 Intake: Intake, IV Titration 65.092 Amount Heparin Sod,Pork in 0.45% 65.092 NaCl 25,000 unit In 0.45 % NaCl 1 250ml.bag @ 12 UNITS/KG/HR 6.804 mls/hr IV .Q24H [facility] Rx#: [id number] Oral 240 Output: Urine 1000 Other: Voiding Method Urinal Urinal Weight 56.699 kg 55.6 kg 04/12/21 02:43 04/11/21 13:25
[2021-04-12] MEDS: clonazePAM 0.5 MG TAB PO SCH ×3 (09:50→20:27)
[2021-04-12] MEDS: ESCITALOPRAM 10 MG TAB PO SCH (09:50)
[2021-04-12] MEDS: lisinopriL 20 MG TAB PO SCH (09:50)
[2021-04-12] MEDS: GABAPENTIN 300 MG CAP PO SCH ×3 (09:51→20:27)
[2021-04-12] MEDS: NICOTINE 21MG/24HR PATCH TRANSDERM SCH (09:51)
[2021-04-12 11:28] LABS: Chol/HDL Ratio 1.74; Cholesterol 157 mg/dL (0-200); Triglycerides <50.0 mg/dL (0.0-149.0)
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
[2021-04-12] MEDS: PANTOPRAZOLE 40 MG/10 ML VIAL IVP SCH (15:53)
--- NOTE | 2021-04-12 15:53 | P.CONS ---
History of Present Illness - Reason for Consult Consult date: 04/12/[address] scan Requesting physician: Kyra Sumner - Chief Complaint Overdose, confusion, altered mental status - History of Present Illness This is a pleasant 60-year-old white male who presented to the emergency department initially yesterday with overdose of heroin which he stated was intentional. Apparently he left to go outside to have a cigarette across the street, he was stumbling, and passed out. Once he was in the emergency room he was noted to be drowsy with a pulse ox in the upper 80s to lower 90s and was diagnosed with respiratory acidosis. So has a history of heavy alcohol abuse, 1-2 pack per day smoker, marijuana use, however states that yesterday was his first time using heroin. He had a CT angiogram of the chest to evaluate for pu lmonary embolism which was negative for pulmonary embolism however did show COPD with moderate emphysema. Multifocal. Areas of. Echo vascular groundglass and early consolidation in both lungs. Correlate for possible etiologies such as multifocal pneumonia,: Pneumonia, interstitial pneumonitis and hypersensitivity pneumonitis. Questionable annular thickening and narrowing of the antrum of the stomach, partially visualized. Appropriate GI referral can be performed and direct visualization to exclude the possibility of a mass patient is symptomatic. The patient states he has no history of peptic ulcer disease, denies any nausea, vomiting or abdominal pain. Denies any signs or symptoms of GI bleed, no use of NSAIDs, no previous EGD or colonoscopy. No family history of cancer. Labs sh owed W BC 4.4, hemoglobin 14.5, hematocrit 44.6, platelets 161,000, INR 0.9. Total bilirubin 0.3, alkaline phosphatase 97, AST 284, ALT 68. He had elevated troponins 2 for which cardiology has been consulted. Review of Systems REVIEW OF SYSTEMS: CARDIOPULMONARY: No chest pain or shortness of breath. Gastrointestinal: No epigastric pain, abdominal pain. No nausea or vomiting. No hematemesis, coffee-ground emesis. No rectal bleeding, or melena. GENITOURINARY: No dysuria or hematuria. MUSCULOSKELETAL: Reports normal range of motion., Joint pain. SKIN: No rashes. No jaundice. ENDOCRINE: No chills, fevers. No excessive weight gain or loss. No polydipsia or polyuria. PSYCHIATRIC: Patient overdosed on heroin, states intentional overdose. NEUROLOGY: No change in mental status. Denies dizziness, headache. ENT: Vision unremarkable. CONSTITUTIONAL: No recent weight loss. No fever, chills, night sweats. Past Medical History Past Medical History: Hypertension History of Any Multi-Drug Resistant Organisms: None Reported Past Surgical History: Appendectomy, Joint Replacement, Orthopedic Surgery Past Psychological History: Anxiety, Depression Smoking Status: Current every day smoker Past Alcohol Use History: Abuse, Occasional Past Drug Use History: Heroin, Marijuana - Past Family History Father History Unknown: Yes Mother History Unknown: Yes Medications and Allergies Home Medications Medication Instructions Recorded Confirmed Type Escitalopram [Lexapro] 10 mg PO DAILY 06/03/16 04/11/21 History Gabapentin [Neurontin] 300 mg PO TID 06/03/16 04/11/21 History clonazePAM [KlonoPIN] 0.5 mg PO TID 06/03/16 04/11/21 History lisinopriL 40 mg PO DAILY 06/03/16 04/11/21 History Allergies Allergy/AdvReac Type Severity Reaction Status Date / Time No Known Allergies Allergy Verified 04/11/21 12:44 Physical Exam Vitals: Vital Signs Temp Pulse Pulse Resp BP BP Pulse Ox 04/12/21 11:10 99.1 F 89 16 162/67 95 04/12/21 09:50 98.9 F 90 18 185/99 99 04/12/21 04:10 98 F 79 17 166/75 98 04/12/21 00:35 99 F 73 17 140/57 97 04/11/21 21:30 98.2 F 78 18 154/73 93 L 04/11/21 21:10 98.4 F 68 18 139/59 98 04/11/21 20:00 66 20 111/82 97 04/11/21 18:00 98 F 72 12 136/71 94 L 04/11/21 17:00 82 13 123/59 95 04/11/21 16:00 97 16 134/74 95 04/11/21 15:00 79 15 94/62 96 Intake and Output 04/11/21 04/12/21 04/12/21 22:59 06:59 14:59 Intake Total 65.092 240 Output Total 1000 Balance -934.908 240 Intake: Intake, IV Titration 65.092 Amount Heparin Sod,Pork in 0.45% 65.092 NaCl 25,000 unit In 0.45 % NaCl 1 250ml.bag @ 12 UNITS/KG/HR 6.804 mls/hr IV .Q24H [facility] Rx#: [id number] Oral 240 Output: Urine 1000 Other: Voiding Method Urinal Urinal Urinal Weight 56.699 kg 55.6 kg General appearance: The patient is alert, oriented, appears in no acute distress. HET: Head is normocephalic and atraumatic. Conjunctiva pink, sclera anicteric. Neck: Supple without lymphadenopathy. Trachea midline. Heart: S1 S2. Regular rate and rhythm. Lungs: Clear to auscultation. Abdomen: Soft, nontender, nondistended with bowel sounds. No guarding or rigidity. Extremities: Normal skin color and turgor. No Pedal edema. Neurological: No focal deficits. Alert and oriented. Results CBC & Chem 7: 04/12/21 02:43 04/11/21 13:25 Labs: Abnormal Lab Results - Last 24 Hours (Table) 04/11/21 04/11/21 04/11/21 Range/Units 16:35 17:13 20:53 MCV (80.0-100.0) fL Lymphocytes # (Manual) (1.0-4.8) k/uL Metamyelocytes # (Man) (0) k/uL Myelocytes # (Manual) (0) k/uL APTT (22.0-30.0) sec ABG pH 7.21 L (7.35-7.45) ABG pCO2 71 H* (35-45) mmHg ABG pO2 60 L (83-108) mmHg ABG HCO3 28 H (21-25) mmol/L ABG Total CO2 30 H (19-24) mmol/L ABG O2 Saturation 85.2 L (94-97) % Troponin I 0.127 H* 0.122 H* (0.000-0.034) ng/mL HDL Cholesterol (40.0-60.0) mg/dL 04/12/21 04/12/21 04/12/21 Range/Units 02:43 02:43 02:43 MCV 101.9 H (80.0-100.0) fL Lymphocytes # (Manual) 0.53 L (1.0-4.8) k/uL Metamyelocytes # (Man) 0.26 H (0) k/uL Myelocytes # (Manual) 0.04 H (0) k/uL APTT 42.7 H (22.0-30.0) sec ABG pH (7.35-7.45) ABG pCO2 (35-45) mmHg ABG pO2 (83-108) mmHg ABG HCO3 (21-25) mmol/L ABG Total CO2 (19-24) mmol/L ABG O2 Saturation (94-97) % Troponin I (0.000-0.034) ng/mL HDL Cholesterol 90.0 H (40.0-60.0) mg/dL 04/12/21 Range/Units 10:03 MCV (80.0-100.0) fL Lymphocytes # (Manual) (1.0-4.8) k/uL Metamyelocytes # (Man) (0) k/uL Myelocytes # (Manual) (0) k/uL APTT 43.1 H (22.0-30.0) sec ABG pH (7.35-7.45) ABG pCO2 (35-45) mmHg ABG pO2 (83-108) mmHg ABG HCO3 (21-25) mmol/L ABG Total CO2 (19-24) mmol/L ABG O2 Saturation (94-97) % Troponin I (0.000-0.034) ng/mL HDL Cholesterol (40.0-60.0) mg/dL Comments: CT chest: No evidence for pulmonary embolus. COPD with moderate emphysema. Multifocal areas of peribronchial vascular groundglass and early consolidation in both lungs. Correlate for possible etiologies such as multifocal pneumonia, cough and pneumonia, interstitial pneumonitis, and hypersensitivity pneumonitis. Questionable annular thickening and narrowing of the antrum the stomach, partially visualized. Appropriate GI referral can be performed and direct visualization to exclude the possibility of a mass the patient is symptomatic. CT scan - chest: report reviewed Assessment and Plan (1) Abnormal finding on CT scan Narrative/Plan: 60-year-old male who presented to the emergency department with a heroin overdose, subsequently left to smoke and had some confusion and stumbling ultimately passed out was brought back to the emergency department. Patient was then found to have some respiratory acidosis so he underwent a CT angiogram of the chest to rule out a pulmonary embolus. The CT was negative for pulmonary embolus, however did show questionable annular thickening and narrowing of the antrum of the stomach, partially visualized. Appropriate GI referral can be performed and direct visualization to exclude possibility of a mass. The patient denies any previous history of EGD or colonoscopy. Denies any history of ulcers, nausea, vomiting, abdominal pain or signs or symptoms of a GI bleed. He denies any use of NSAIDs. Hemoglobin was stable on admission at 14.5. Discussed with patient findings on CT, he is agreeable to proceed with the upper endoscopy to rule out any possibility of mass or other etiology. Current Visit: Yes Status: Acute Code(s): R93.89 - ABNORMAL FINDINGS ON DX IMAGING OF OTH BODY STRUCTURES SNOMED Code(s): 281353173 (2) Altered mental status Current Visit: Yes Status: Acute Code(s): R41.82 - ALTERED MENTAL STATUS, UNSPECIFIED SNOMED Code(s): 258588079 (3) Heroin overdose Current Visit: No Status: Acute Code(s): T40.1X1A - POISONING BY HEROIN, ACCIDENTAL (UNINTENTIONAL), INIT ENCNTR SNOMED Code(s): 220698635 (4) Elevated troponin Narrative/Plan: Patient had elevated troponins 2, cardiology on consult. Patient to undergo echocardiogram. Patient will need cardiac clearance prior to proceeding with upper endoscopy. Current Visit: Yes Status: Acute Code(s): R77.8 - OTHER SPECIFIED ABNORMALITIES OF PLASMA PROTEINS SNOMED Code(s): 765042097 Plan: 1. Nothing by mouth after midnight 2. CT of chest reviewed 3. Patient will be scheduled for EGD tomorrow pending cardiac clearance. The procedure including risks and benefits discussed with the patient in detail, he seemingly understands and would like to proceed. 4. Protonix 40 mg IV twice a day 5. Continue medical management Thank you for this consultation, we will continue to follow Dr. Ward I agree with the dictator's note, documented as a scribe by Arielle Aguilar.
--- NOTE | 2021-04-12 19:40 | P.HPIM ---
History of Present Illness H&P Date: 04/12/21 Dmitry Escalante, is a 60 year old male who presented to [facility] emergency room due to mental status changes and feeling dizzy and having unsteady gait and being confused patient was evaluated earlier in the emergency room and was discharged home. He returned to emergency room at this time he stated that he used heroin and he stated that he did that in a suicidal attempt, he was evaluated in the emergency room vital examination on presentation revealed a temperature of 98.8 pulse 89 respiration 16 blood pressure 144/88 pulse ox 96% on room air, laboratory data revealed a white blood count of 7.7 hemoglobin 15.9 platelet count 233 sodium 1:30 potassium 4.6 chloride 93 CO2 23 BUN 26 creatinine 1.42 ALT 68 AST 284 troponin level elevated at 0.112 COVID-19 PCR was negative. Patient was admitted to telemetry floor cardiology consultation was requested he was started on IV heparin per protocol Past Medical History Past Medical History: Hypertension History of Any Multi-Drug Resistant Organisms: None Reported Past Surgical History: Appendectomy, Joint Replacement, Orthopedic Surgery Past Psychological History: Anxiety, Depression Smoking Status: Current every day smoker Past Alcohol Use History: Abuse, Occasional Past Drug Use History: Heroin, Marijuana - Past Family History Father History Unknown: Yes Mother History Unknown: Yes Medications and Allergies Home Medications Medication Instructions Recorded Confirmed Type Escitalopram [Lexapro] 10 mg PO DAILY 06/03/16 04/11/21 History Gabapentin [Neurontin] 300 mg PO TID 06/03/16 04/11/21 History clonazePAM [KlonoPIN] 0.5 mg PO TID 06/03/16 04/11/21 History lisinopriL 40 mg PO DAILY 06/03/16 04/11/21 History Allergies Allergy/AdvReac Type Severity Reaction Status Date / Time No Known Allergies Allergy Verified 04/11/21 12:44 Physical Exam Vitals: Vital Signs Temp Pulse Pulse Resp BP BP Pulse Ox 04/12/21 04:10 98 F 79 17 166/75 98 04/12/21 00:35 99 F 73 17 140/57 97 04/11/21 21:30 98.2 F 78 18 154/73 93 L 04/11/21 21:10 98.4 F 68 18 139/59 98 04/11/21 20:00 66 20 111/82 97 04/11/21 18:00 98 F 72 12 136/71 94 L 04/11/21 17:00 82 13 123/59 95 04/11/21 16:00 97 16 134/74 95 04/11/21 15:00 79 15 94/62 96 04/11/21 14:00 76 16 117/64 96 04/11/21 12:40 98.8 F 89 16 144/88 96 Intake and Output 04/11/21 04/11/21 04/12/21 14:59 22:59 06:59 Intake Total 65.092 Balance 65.092 Intake: Intake, IV Titration 65.092 Amount Heparin Sod,Pork in 0.45% 65.092 NaCl 25,000 unit In 0.45 % NaCl 1 250ml.bag @ 12 UNITS/KG/HR 6.804 mls/hr IV .Q24H [facility] Rx#: [id number] Other: Voiding Method Urinal Urinal Weight 56.699 kg 56.699 kg In general patient is alert and oriented ?-3 in no distress HEENT head normocephalic and atraumatic Neck is supple no JVD no goiter no lymphadenopathy no carotid bruit Chest examination is clear to auscultation no crackles no wheezing Cardiac exam reveals regular heart sounds S1 and S2 no gallops no murmurs Abdomen is soft nontender no organomegaly with normal bowel sounds Extremity exam reveals no edema no cyanosis or clubbing Neurological examination reveals no gross focal deficits Results CBC & Chem 7: 04/12/21 02:43 04/11/21 13:25 Labs: Abnormal Lab Results - Last 24 Hours (Table) 04/11/21 04/11/21 04/11/21 Range/Units 13:25 13:25 13:25 MCV 100.2 H (80.0-100.0) fL Lymphocytes # (Manual) (1.0-4.8) k/uL Metamyelocytes # (Man) (0) k/uL Myelocytes # (Manual) (0) k/uL APTT 20.9 L (22.0-30.0) sec ABG pH (7.35-7.45) ABG pCO2 (35-45) mmHg ABG pO2 (83-108) mmHg ABG HCO3 (21-25) mmol/L ABG Total CO2 (19-24) mmol/L ABG O2 Saturation (94-97) % Sodium 130 L (137-145) mmol/L Chloride 93 L (98-107) mmol/L BUN 26 H (9-20) mg/dL Creatinine 1.42 H (0.66-1.25) mg/dL Glucose 129 H (74-99) mg/dL AST 284 H (17-59) U/L ALT 68 H (4-49) U/L Troponin I (0.000-0.034) ng/mL 04/11/21 04/11/21 04/11/21 Range/Units 13:25 16:35 17:13 MCV (80.0-100.0) fL Lymphocytes # (Manual) (1.0-4.8) k/uL Metamyelocytes # (Man) (0) k/uL Myelocytes # (Manual) (0) k/uL APTT (22.0-30.0) sec ABG pH 7.21 L (7.35-7.45) ABG pCO2 71 H* (35-45) mmHg ABG pO2 60 L (83-108) mmHg ABG HCO3 28 H (21-25) mmol/L ABG Total CO2 30 H (19-24) mmol/L ABG O2 Saturation 85.2 L (94-97) % Sodium (137-145) mmol/L Chloride (98-107) mmol/L BUN (9-20) mg/dL Creatinine (0.66-1.25) mg/dL Glucose (74-99) mg/dL AST (17-59) U/L ALT (4-49) U/L Troponin I 0.112 H* 0.127 H* (0.000-0.034) ng/mL 04/11/21 04/12/21 04/12/21 Range/Units 20:53 02:43 02:43 MCV 101.9 H (80.0-100.0) fL Lymphocytes # (Manual) 0.53 L (1.0-4.8) k/uL Metamyelocytes # (Man) 0.26 H (0) k/uL Myelocytes # (Manual) 0.04 H (0) k/uL APTT 42.7 H (22.0-30.0) sec ABG pH (7.35-7.45) ABG pCO2 (35-45) mmHg ABG pO2 (83-108) mmHg ABG HCO3 (21-25) mmol/L ABG Total CO2 (19-24) mmol/L ABG O2 Saturation (94-97) % Sodium (137-145) mmol/L Chloride (98-107) mmol/L BUN (9-20) mg/dL Creatinine (0.66-1.25) mg/dL Glucose (74-99) mg/dL AST (17-59) U/L ALT (4-49) U/L Troponin I 0.122 H* (0.000-0.034) ng/mL Thrombosis Risk Factor Assmnt - Choose All That Apply Any of the Below Risk Factors Present?: No Other Risk Factors: Yes Each Risk Factor Represents 2 Points: Age 61-74 years Other congenital or acquired thrombophilia - If yes, enter type in comment: No Thrombosis Risk Factor Assessment Total Risk Factor Score: 2 Thrombosis Risk Factor Assessment Level: Low Risk Assessment and Plan Plan: 1. Heroine use patient stated that this is the first time he used heroin, he states that he did that in a suicidal attempt, at this time will keep 24 hour sitter at bedside, psychiatry consultation requested. 2. Elevated troponin level, patient was started on IV heparin per protocol, cardiology consultation requested 3. CT of the chest is revealing abnormality in the antrum of the stomach, gastroenterology consultation was requested for possible EGD, patient was started on IV Protonix 4. Elevated liver enzymes, likely related to alcohol use 5. Tobacco use patient was counseled in length to quit smoking at this time patient has a nicotine patch 6. Underlying history of hypertension 7. Alcohol use with early alcohol withdrawal, patient was started on CIWA protocol Medication and labs were reviewed Prolonged time was spent in counseling Will recheck labs and follow-up in a.m.
[2021-04-12] MEDS: ACETAMINOPHEN TAB 500 MG TAB PO PRN (20:27)
[2021-04-13] MEDS: THIAMINE 100 MG TAB PO SCH ×2 (06:23→17:19)
[2021-04-13 09:21] LABS: HCT 37.9 % (39.0-53.0); HGB 12.7 gm/dL (13.0-17.5); MCH 33.2 pg (25.0-35.0); MCHC 33.6 g/dL (31.0-37.0); MCV 98.9 fL (80.0-100.0); Platelet Count 166 k/uL (150-450); RBC 3.83 m/uL (4.30-5.90); RDW 13.9 % (11.5-15.5); WBC 5.9 k/uL (3.8-10.6)
[2021-04-13 09:35] LABS: ALT 80 U/L (4-49); AST 202 U/L (17-59); African American GFR (CKD) >90 (>60 ml/min/1.73 sqM); Albumin 2.7 g/dL (3.5-5.0); Alkaline Phosphatase 59 U/L (38-126); Anion Gap -1 mmol/L; Blood Urea Nitrogen 17 mg/dL (9-20); Calcium 8.5 mg/dL (8.4-10.2); Carbon Dioxide 34 mmol/L (22-30); Chloride 94 mmol/L (98-107); Glucose 127 mg/dL (74-99); Non-African American GFR(CKD) >90 (>60 ml/min/1.73 sqM); Potassium 4.8 mmol/L (3.5-5.1); Sodium 127 mmol/L (137-145); Total Bilirubin 0.2 mg/dL (0.2-1.3)
--- NOTE | 2021-04-13 10:14 | P.PN ---
Subjective Progress Note Date: 04/13/21 Dmitry Escalante, is a 60 year old male who presented to [facility] emergency room due to mental status changes and feeling dizzy and having unsteady gait and being confused patient was evaluated earlier in the emergency room and was discharged home. He returned to emergency room at this t [place] he stated that he used heroin and he stated that he did that in a suicidal attempt, he was evaluated in the emergency room vital examination on presentation revealed a temperature of 98.8 pulse 89 respiration 16 blood pressure 144/88 pulse ox 96% on room air, laboratory data revealed a white blood count of 7.7 hemoglobin 15.9 platelet count 233 sodium 1:30 potassium 4.6 chloride 93 CO2 23 BUN 26 creatinine 1.42 ALT 68 AST 284 troponin level elevated at 0.112 COVID-19 PCR was negative. Patient was admitted to telemetry floor cardiology consultation was requested he was started on IV heparin per protocol On 04/13/2021 patient is alert and oriented 3. Patient remains on suicide prec autions one-to-one sitter. Patient was evaluated by inpatient psych plans for admission to inpatient psych unit when medically stable. Patient to undergo EGD today per GI recommendation. At this time patient denies chest pain or shortness of breath. Patient denies nausea vomiting or diarrhea. Patient denies any urinary burning or frequency Objective - Vital Signs Vital signs: Vital Signs Temp 98.7 F 04/13/21 07:55 Pulse 77 04/13/21 07:55 Resp 17 04/13/21 07:55 BP 140/72 04/13/21 07:55 Pulse Ox 99 04/13/21 07:55 Intake & Output 04/12/21 04/13/21 04/13/21 18:59 06:59 18:59 Intake Total 480 240 Output Total 200 Balance 480 40 Weight 54.9 kg Intake: Oral 480 240 Output: Urine 200 Other: Voiding Method Urinal Urinal Urinal # Voids 2 - Exam In general patient is alert and oriented ?-3 in no distress HEENT head normocephalic and atraumatic Neck is supple no JVD no goiter no lymphadenopathy no carotid bruit Chest examination is clear to auscultation no crackles no wheezing Cardiac exam reveals regular heart sounds S1 and S2 no gallops no murmurs Abdomen is soft nontender no organomegaly with normal bowel sounds Extremity exam reveals no edema no cyanosis or clubbing Neurological examination reveals no gross focal deficits - Labs CBC & Chem 7: 04/13/21 08:17 04/13/21 08:17 Labs: Abnormal Lab Results - Last 24 Hours (Table) 04/12/21 04/12/21 04/13/21 Range/Units 02:43 10:03 08:17 RBC 3.83 L (4.30-5.90) m/uL Hgb 12.7 L (13.0-17.5) gm/dL Hct 37.9 L (39.0-53.0) % APTT 43.1 H (22.0-30.0) sec Sodium (137-145) mmol/L Chloride (98-107) mmol/L Carbon Dioxide (22-30) mmol/L Glucose (74-99) mg/dL AST (17-59) U/L ALT (4-49) U/L Total Protein (6.3-8.2) g/dL Albumin (3.5-5.0) g/dL HDL Cholesterol 90.0 H (40.0-60.0) mg/dL 04/13/21 Range/Units 08:17 RBC (4.30-5.90) m/uL Hgb (13.0-17.5) gm/dL Hct (39.0-53.0) % APTT (22.0-30.0) sec Sodium 127 L (137-145) mmol/L Chloride 94 L (98-107) mmol/L Carbon Dioxide 34 H (22-30) mmol/L Glucose 127 H (74-99) mg/dL AST 202 H (17-59) U/L ALT 80 H (4-49) U/L Total Protein 5.0 L (6.3-8.2) g/dL Albumin 2.7 L (3.5-5.0) g/dL HDL Cholesterol (40.0-60.0) mg/dL Assessment and Plan Plan: 1. Heroine use patient stated that this is the first time he used heroin, he states that he did that in a suicidal attempt, at this time will keep 24 hour sitter at bedside, psychiatry consultation requested. Patient was evaluated by psychiatry services plans for inpatient psych admission when medically stable 2. Elevated troponin level, patient was started on IV heparin per protocol, car diology consultation requested 3. CT of the chest is revealing abnormality in the antrum of the stomach, gastroenterology consultation was requested for possible EGD, patient was started on IV Protonix. Plans for EGD today per GI 4. Elevated liver enzymes, likely related to alcohol use 5. Tobacco use patient was counseled in length to quit smoking at this time patient has a nicotine patch 6. Underlying history of hypertension 7. Alcohol use with early alcohol withdrawal, patient was started on CIWA protocol EGD today 04/13/2021 Inpatient psych admission per psych recommendation when medically stable
[2021-04-13] MEDS: lisinopriL 20 MG TAB PO SCH (10:29)
[2021-04-13] MEDS: PANTOPRAZOLE 40 MG/10 ML VIAL IVP SCH (10:29)
[2021-04-13] MEDS: GABAPENTIN 300 MG CAP PO SCH ×3 (10:29→20:42)
[2021-04-13] MEDS: ESCITALOPRAM 10 MG TAB PO SCH (10:29)
[2021-04-13] MEDS: clonazePAM 0.5 MG TAB PO SCH ×3 (10:29→20:42)
[2021-04-13] MEDS: SODIUM CHLORIDE 0.9% 1,000 ML IV SCH (10:32)
[2021-04-13] MEDS: NICOTINE 21MG/24HR PATCH TRANSDERM SCH (10:32)
--- NOTE | 2021-04-13 10:59 | ECHOF ---
Referral Reason:Altered mental status, cardiac strain MEASUREMENTS -------- HEIGHT: 182.9 cm WEIGHT: 55.3 kg BP: 166/75 RVIDd: 4.1 cm (< 3.3) IVSd: 1.0 cm (0.6 - 1.1) LVIDd: 4.2 cm (3.9 - 5.3) LVPWd: 1.0 cm (0.6 - 1.1) IVSs: 1.1 cm LVIDs: 3.2 cm LVPWs: 1.5 cm LAESV Index (A-L): 30.53 ml/m Ao Diam: 3.6 cm (2.0 - 3.7) AV Cusp: 1.9 cm (1.5 - 2.6) MV EXCURSION: 20.180 mm (> 18.000) MV EF SLOPE: 51 mm/s (70 - 150) EPSS: 1.2 cm MV E Gasper: 1.21 m/s MV DecT: 182 ms MV A Gasper: 0.96 m/s MV E/A Ratio: 1.27 RAP: 5.00 mmHg RVSP: 36.36 mmHg FINDINGS -------- Sinus rhythm. This was a technically adequate study. The left ventricular size is normal. Left ventricular wall thickness is normal. Overall left vent ricular systolic function is low-normal with, an EF between 50 - 55 %. The right ventricle is moderately enlarged. LA is midly dilated 29-33ml/m2. The right atrium is mildly enlarged. Interatrial and interventricular septum intact. The aortic valve is trileaflet and appears structurally normal. There is no evidence of aortic regu rgitation. There is no evidence of aortic stenosis. No mitral regurgitation. Mild tricuspid regurgitation present. There is mild pulmonary hypertension. The right ventricular systolic pressure, as measured by Doppler, is 36.36mmHg. There is no pulmonic regurgitation present. The aortic root size is normal. IVC Not well visulized. There is no pericardial effusion. CONCLUSIONS -------- 1. The left ventricular size is normal. 2. Left ventricular wall thickness is normal. 3. Overall left ventricular systolic function is low-normal with, an EF between 50 - 55 %. 4. The right ventricle is moderately enlarged. 5. LA is midly dilated 29-33ml/m2. 6. The right atrium is mildly enlarged. 7. Mild tricuspid regurgitation present. 8. There is mild pulmonary hypertension. 9. The right ventricular systolic pressure, as measured by Doppler, is 36.36mmHg. COMPUTER SECURITY COORDINATOR: Dione Chun RDCS
--- NOTE | 2021-04-13 11:55 | P.PN ---
Subjective Progress Note Date: 04/13/21 HISTORY OF PRESENT ILLNESS: This is a 60-year-old male with a past medical history significant for hypertension, nicotine dependence, COPD, alcohol abuse, and Heroin use. 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 We have been asked to see the patient in consultation for abnormal troponins. Patient examined at the bedside. Patient was evaluated in the ER on the morning of 04/11/2021 secondary to a Heroin overdose. Patient was given intranasal Narcan. Patient states this was a suicide attempt. Patient was discharged from the emergency room. Patient states he walked across the street and was sitting down smoking a cigarette. Patient states he tried to get up after he finished cigarette and felt like his legs were very weak and he felt unsteady. Patient reports he decided to smoke another cigarette because he thought this would help with this unsteadiness. Patient reports the next thing he remembers was the police by his side questioning him. Patient states he felt foggy and was unable to answer questions correctly such as what year it was and the police brought him back to the hospital for evaluation. Patient denies chest pain or pressure. Patient denies shortness of breath. Denies dizziness or lightheadedness. EKG reveals sinus mechanism with no signs of acute ischemia Chest xray chronic parenchymal changes without acute pulmonary process Laboratory data: WBC 4.4. Hemoglobin 14.5. Platelet count 161. Sodium 130. Potassium 4.6. BUN 26. Creatinine 1.42. AST 284. ALT 68. Troponin 0.112. 0.127. 0.122. Current home cardiac medications include lisinopril 40 mg daily 04/13/2021 Patient examined this point bedside. He denies chest pain or pressure. He denies shortness of breath. He remains on nasal cannula with oxygen saturations greater than 92%. Echo cardiac exam completed reveals ejection fraction 50-55%, mild tricuspid regurgitation, and mild pulmonary hypertension. Patient is scheduled for an EGD today with GI team. Vital signs stable. PHYSICAL EXAM: VITAL SIGNS: Reviewed. GENERAL: Well-developed in no acute distress. HEENT: Head is normocephalic. Pupils are equal, round. Sclerae anicteric. Mucous membranes of the mouth are moist. Neck supple. No JVD or thyromegaly LUNGS: Respirations even and unlabored. Lungs essentially clear to auscultation bilaterally. HEART: Regular rate and rhythm. S1 and S2 heard. ABDOMEN: Soft. Nondistended. Nontender. EXTREMITIES: Normal range of motion. No clubbing or cyanosis. Peripheral pulses intact. No lower extremity edema NEUROLOGIC: Awake and alert. Oriented x 3. ASSESSMENT: Recent heroin overdose; suicide attempt Acute hypercapnic respiratory failure Acute encephalopathy Abnormal troponins, flat, not suggestive of acute coronary syndrome Hypertension Nicotine dependence, patient smokes 1. 52 packs per day Alcohol abuse Heroin use PLAN: Continue current cardiac medications Encourage smoking cessation Encourage abstinence from alcohol Encouraged patient to avoid drug use No further inpatient recommendations from a cardiac standpoint We will sign off. Please reconsult if needed. Nurse practitioner note has been reviewed by physician. Signing provider agrees with the documented findings, assessment, and plan of care. Objective - Vital Signs Vital signs: Vital Signs Temp 98.7 F 04/13/21 07:55 Pulse 77 04/13/21 07:55 Resp 17 04/13/21 07:55 BP 140/72 04/13/21 07:55 Pulse Ox 99 04/13/21 07:55 Intake & Output 04/12/21 04/13/21 04/13/21 18:59 06:59 18:59 Intake Total 480 240 Output Total 200 Balance 480 40 Weight 54.9 kg Intake: Oral 480 240 Output: Urine 200 Other: Voiding Method Urinal Urinal Urinal # Voids 2 - Labs CBC & Chem 7: 04/13/21 08:17 04/13/21 08:17 Labs: Abnormal Lab Results - Last 24 Hours (Table) 04/13/21 04/13/21 Range/Units 08:17 08:17 RBC 3.83 L (4.30-5.90) m/uL Hgb 12.7 L (13.0-17.5) gm/dL Hct 37.9 L (39.0-53.0) % Sodium 127 L (137-145) mmol/L Chloride 94 L (98-107) mmol/L Carbon Dioxide 34 H (22-30) mmol/L Glucose 127 H (74-99) mg/dL AST 202 H (17-59) U/L ALT 80 H (4-49) U/L Total Protein 5.0 L (6.3-8.2) g/dL Albumin 2.7 L (3.5-5.0) g/dL
[2021-04-13 12:49] LABS: Band Neutrophils % 12 %; Eosinophils # (M) 0.06 k/uL (0-0.7); Lymphocytes # (M) 0.77 k/uL (1.0-4.8); Neutrophils % (M) 69 %; Nucleated Red Blood Cells 0 /100 WBC (0-0); Total Cells Counted 100
[2021-04-13 12:55] VITALS: RESP 18
[2021-04-13 14:40] VITALS: BMI 16.4
[2021-04-13] MEDS: LORazepam 2 MG/ML INJ IV PRN (14:43)
[2021-04-13] MEDS ORDERED: LIDOCAINE 1% INJ 10MG/ML (20 ML MDV) ONE (15:24)
[2021-04-13] MEDS ORDERED: PROPOFOL 10 MG/ML 20 ML VIAL IV ONE (15:24)
[2021-04-13] MEDS ORDERED: IV FLUID CONTINUATION 500 ML IV ONE (15:33)
--- NOTE | 2021-04-13 15:45 | P.PCN ---
Date of Procedure: 04/13/21 Description of Procedure: BRIEF HISTORY: 60-year-old white male who presented to the emergency department initially yesterday with overdose of heroin which he stated was intentional. Apparently he left to go outside to have a cigarette across the street, he was stumbling, and passed out. Once he was in the emergency room he was noted to be drowsy with a pulse ox in the upper 80s to lower 90s and was diagnosed with respiratory acidosis. So has a history of heavy alcohol abuse, 1-2 pack per day smoker, marijuana use, however states that yesterday was his first time using heroin. He had a CT angiogram of the chest to evaluate for pulmonary embolism which was negative for pulmonary embolism however did show COPD with moderate emphysema. Multifocal. Areas of. Echo vascular groundglass and early consolidation in both lungs. Correlate for possible etiologies such as multifocal pneumonia,: Pneumonia, interstitial pneumonitis and hypersensitivity pneumonitis. Questionable annular thickening and narrowing of the antrum of the stomach, partially visualized. Appropriate GI referral can be performed and direct visualization to exclude the possibility of a mass patient is symptomatic. The patient states he has no history of peptic ulcer disease, denies any nausea, vomiting but does report some mild epigastric pain. PROCEDURE PERFORMED: Esophagogastroduodenoscopy with biopsy . PREOPERATIVE DIAGNOSIS: Abnormal computed tomography scan abdomen, epigastric abdominal pain. ESTIMATED BLOOD LOSS: Minimal. IV sedation per anesthesia. PROCEDURE: After informed consent was obtained, the patient was brought into the endoscopy unit. IV sedation was administered by Anesthesia under continuous monitoring. Initially the Olympus GIF-190 video endoscope was inserted into the mouth. Esophagus intubated without any difficulty. It was gradually advanced into the stomach and duodenum and carefully examined. The bulb and the second part of the duodenum appeared normal, with biopsies taken. The scope at this time was withdrawn to the stomach, adequately insufflated with air, and upon careful examination, mucosa of the antrum, body, cardia and the fundus appeared normal, Except for some mild patchy erythema in the antrum and body suggestive of mild gastritis biopsies taken. The scope was then withdrawn into the esophagus. The GE junction was located at 39 cm from the incisors. The esophagus appeared normal. There were no erosions or ulcerations seen and the patient tolerated the procedure well. IMPRESSION: 1. Mild gastritis . 2. Biopsies of the duodenum, antrum and body. RECOMMENDATIONS: The findings of this examination were discussed with the patient and the medical team. Okay to resume diet. Okay to resume medications. Continue daily PPI therapy. Await pathology from biopsies. No further evaluation by the GI service, the GI service will stand by, please call us back with any questions or concerns.
[2021-04-14] MEDS: ACETAMINOPHEN TAB 500 MG TAB PO PRN (03:43)
[2021-04-14] MEDS: SODIUM CHLORIDE 0.9% 1,000 ML IV SCH ×2 (03:48→09:53)
[2021-04-14] MEDS: THIAMINE 100 MG TAB PO SCH ×2 (06:17→16:21)
[2021-04-14] MEDS ORDERED: PANTOPRAZOLE 40 MG TABLET PO SCH (07:30)
[2021-04-14] MEDS: GABAPENTIN 300 MG CAP PO SCH ×3 (09:11→20:42)
[2021-04-14] MEDS: NICOTINE 21MG/24HR PATCH TRANSDERM SCH (09:11)
[2021-04-14] MEDS: ESCITALOPRAM 10 MG TAB PO SCH (09:11)
[2021-04-14] MEDS: clonazePAM 0.5 MG TAB PO SCH ×3 (09:11→20:42)
[2021-04-14] MEDS: lisinopriL 20 MG TAB PO SCH (09:11)
[2021-04-14 09:54] LABS: Basophils % (A) 0 %; Eosinophils % (A) 1 %; HCT 38.3 % (39.0-53.0); HGB 12.9 gm/dL (13.0-17.5); Lymphocytes % (A) 15 %; MCH 33.3 pg (25.0-35.0); MCHC 33.8 g/dL (31.0-37.0); MCV 98.6 fL (80.0-100.0); Mean Platelet Volume 8.2; Monocytes # (A) 0.2 k/uL (0-1.0); Monocytes % (A) 3 %; Neutrophils # (A) 5.4 k/uL (1.3-7.7); Neutrophils % (A) 80 %; Platelet Count 193 k/uL (150-450); RBC 3.88 m/uL (4.30-5.90); RDW 13.2 % (11.5-15.5); WBC 6.7 k/uL (3.8-10.6)
[2021-04-14 10:12] LABS: ALT 71 U/L (4-49); AST 138 U/L (17-59); African American GFR (CKD) >90 (>60 ml/min/1.73 sqM); Albumin 2.8 g/dL (3.5-5.0); Alkaline Phosphatase 57 U/L (38-126); Anion Gap 3 mmol/L; Blood Urea Nitrogen 15 mg/dL (9-20); Calcium 9.3 mg/dL (8.4-10.2); Carbon Dioxide 33 mmol/L (22-30); Chloride 96 mmol/L (98-107); Glucose 165 mg/dL (74-99); Non-African American GFR(CKD) 85 (>60 ml/min/1.73 sqM); Potassium 4.2 mmol/L (3.5-5.1); Sodium 132 mmol/L (137-145); Total Bilirubin 0.3 mg/dL (0.2-1.3)
[2021-04-14] MEDS: LORazepam 2 MG/ML INJ IV PRN ×3 (13:49→18:32)
--- NOTE | 2021-04-14 17:28 | P.DS ---
Providers Date of admission: 04/14/21 11:05 Expected date of discharge: 04/14/21 Attending physician: Kyra Sumner Consults: 04/11/21 22:22 Consult Physician Routine Consulting Provider: Psychiatry - [facility] Psychiatry Consult Reason/Comments: Suicidal Ideation Do you want consulting provider notified?: Yes, Notify in am Primary care physician: Kyra Burak [facility] Course: Diagnoses on discharge: 1. Heroine use patient stated that this is the first time he used heroin, he states that he did that in a suicidal attempt, at this time will keep 24 hour sitter at bedside, psychiatry consultation requested. Patient was evaluated by psychiatry services plans for inpatient psych admission when medically stable 2. Elevated troponin level, patient was started on IV heparin per protocol, cardiology consultation requested 3. CT of the chest is revealing abnormality in the antrum of the stomach, gastroenterology consultation was requested for possible EGD, patient was started on IV Protonix. Plans for EGD today per GI 4. Elevated liver enzymes, likely related to alcohol use 5. Tobacco use patient was counseled in length to quit smoking at this time patient has a nicotine patch 6. Underlying history of hypertension 7. Alcohol use with early alcohol withdrawal, patient was started on CIWA protocol Hospital course: Dmitry Escalante, is a 60 year old male who presented to [facility] emergency room due to mental status changes and feeling dizzy and having unsteady gait and being confused patient was evaluated earlier in the emergency room and was discharged home. He returned to emergency room at this time he stated that he used heroin and he stated that he did that in a suicidal attempt, he was evaluated in the emergency room vital examination on presentation revealed a temperature of 98.8 pulse 89 respiration 16 blood pressure 144/88 pulse ox 96% on room air, laboratory data revealed a white blood count of 7.7 hemoglobin 15.9 platelet count 233 sodium 1:30 potassium 4.6 chloride 93 CO2 23 BUN 26 creatinine 1.42 ALT 68 AST 284 troponin level elevated at 0.112 COVID-19 PCR was negative. Patient was admitted to telemetry floor cardiology consultation was requested he was started on IV heparin per protocol On 04/13/2021 patient is alert and oriented 3. Patient remains on suicide precautions one-to-one sitter. Patient was evaluated by inpatient psych plans for admission to inpatient psych unit when medically stable. Patient to undergo EGD today per GI recommendation. At this time patient denies chest pain or shortness of breath. Patient denies nausea vomiting or diarrhea. Patient denies any urinary burning or frequency On 04/14/2021 patient was seen and examined on the medical floor he is alert and oriented x 3 he denies any complaints at this time. results of EGD reviewed, lab results reviewed Patient is medically cleared to transfer to the psych unit. Patient Condition at Discharge: Fair Plan - Discharge Summary Discharge Rx Participant: No New Discharge Prescriptions: New Nitroglycerin Sl Tabs [Nitrostat] 0.4 mg SUBLINGUAL Q5M PRN tab PRN Reason: Chest Pain Pantoprazole [Protonix] 40 mg PO AC-BRKFST tablet. Thiamine [Vitamin B-1] 100 mg PO BID-W/MEALS tab Nicotine 21Mg/24Hr Patch [Habitrol] 1 patch TRANSDERM DAILY patch Acetaminophen Tab [Tylenol] 500 mg PO Q6HR PRN tab PRN Reason: Fever And/ Or Pain Continue clonazePAM [KlonoPIN] 0.5 mg PO TID lisinopriL 40 mg PO DAILY Gabapentin [Neurontin] 300 mg PO TID Escitalopram [Lexapro] 10 mg PO DAILY Discharge Medication List Escitalopram [Lexapro] 10 mg PO DAILY 06/03/16 [History] Gabapentin [Neurontin] 300 mg PO TID 06/03/16 [History] clonazePAM [KlonoPIN] 0.5 mg PO TID 06/03/16 [History] lisinopriL 40 mg PO DAILY 06/03/16 [History] Acetaminophen Tab [Tylenol] 500 mg PO Q6HR PRN tab 04/14/21 [Rx] Nicotine 21Mg/24Hr Patch [Habitrol] 1 patch TRANSDERM DAILY patch 04/14/21 [Rx] Nitroglycerin Sl Tabs [Nitrostat] 0.4 mg SUBLINGUAL Q5M PRN tab 04/14/21 [Rx] Pantoprazole [Protonix] 40 mg PO AC-BRKFST tablet. 04/14/21 [Rx] Thiamine [Vitamin B-1] 100 mg PO BID-W/MEALS tab 04/14/21 [Rx] Follow up Appointment(s)/Referral(s): Kyra Sumner MD [Primary Care Provider] - 1-2 days
[2021-04-14] MEDS ORDERED: hydrALAZINE HCL 25 MG TAB PO PRN (20:52)
[2021-04-14 22:32] VITALS: TEMP 98.2
[2021-04-15 00:39] VITALS: BP 179/83; PULSE 82
--- NOTE | 2021-05-01 09:42 | CDI ---
Documentation Clarification Form Date: 05/01/2021 09:32:29 AM From: Stephon Amanda Admit Date: 04/14/2021 11:05:00 AM Patient Name: Chico Escalante Visit Number: [id number] Discharge Date: 04/15/2021 02:06:00 AM ATTENTION: The Clinical Documentation Specialists (CDI) and [facility] Coding Staff appreciate your assistance in clarifying documentation. Please respond to the clarification below the line at the bottom and electronically sign. The CDI & [facility] Coding staff will review the response and follow-up if needed. Please note: Queries are made part of the Legal Health Record. If you have any questions, please contact the author of this message via ITS. Dr. Kyra Sumner Patient was admitted 04/11/21 under outpatient observation for a heroin overdose and suicide attempt. Patient was changed to inpatient status on 04/14. Cardiology consult done for elevated troponin and admitted to tel med floor. History/Risk Factors: heroin overdose, elevated troponin, HTN Clinical Indicators: elevated troponin Treatment: cardiology consult Please clarify the reason for the inpatient admission [ ] heroin overdose [ ] elevated troponin found not to be ACS [ x ] Both of the above [ ] other-please specify MTDD
== END 2021-04-15 02:06 | DRG 947 ==
LOC: EC 12:34 → 3SCARD 15:04 → OBSVTOIN 04-14 11:05
PROVIDERS: ADMIT Internal Medicine; ATTEND Internal Medicine
PROC: 0DB68ZX Excision of Stomach, Via Natural or Artificial Opening Endoscopic, Diagnostic (ICD-10-PCS; principal; 2021-04-13 07:30)
DX: R77.8 Other specified abnormalities of plasma proteins (principal); G93.40 Encephalopathy, unspecified; J96.02 Acute respiratory failure with hypercapnia; E87.2 Acidosis; K29.70 Gastritis, unspecified, without bleeding; F10.139 Alcohol abuse with withdrawal, unspecified; R74.8 Abnormal levels of other serum enzymes; T40.1X2A Poisoning by heroin, intentional self-harm, initial encounter; I10 Essential (primary) hypertension; F11.90 Opioid use, unspecified, uncomplicated; F32.9 Major depressive disorder, single episode, unspecified; F41.9 Anxiety disorder, unspecified; Z20.822 Contact with and (suspected) exposure to COVID-19; F17.210 Nicotine dependence, cigarettes, uncomplicated; J44.9 Chronic obstructive pulmonary disease, unspecified
CPT/HCPCS: 36600; 43239; 70450; 71046; 71275; 80053; 80061; 82075; 82805; 84484; 85025; 85610; 85730; 87635; 88305; 93005; 93306; 94660; 96360; 96361; 99285

== ENCOUNTER 2021-04-15 01:45 | Inpatient (IN) | payer MEDICAID ==
[2021-04-15] MEDS ORDERED: MAG HYDROX/AL HYDROX/SIMETH 30 ML CUP PO PRN (03:16)
[2021-04-15] MEDS ORDERED: MAGNESIUM HYDROXIDE 2,400 MG/10 ML CUP PO PRN (03:16)
[2021-04-15] MEDS ORDERED: NITROGLYCERIN SL TABS 0.4 MG TAB SUBLINGUAL PRN (03:22)
[2021-04-15] MEDS ORDERED: HALOPERIDOL LACTATE 5 MG/ML 1 ML VIAL IM PRN (03:24)
[2021-04-15] MEDS: GABAPENTIN 300 MG CAP PO SCH ×3 (08:23→21:33)
[2021-04-15] MEDS: ESCITALOPRAM 10 MG TAB PO SCH (08:23)
[2021-04-15] MEDS: PANTOPRAZOLE 40 MG TABLET PO SCH (08:23)
[2021-04-15] MEDS: lisinopriL 20 MG TAB PO SCH (08:23)
[2021-04-15] MEDS: THIAMINE 100 MG TAB PO SCH ×2 (08:23→16:51)
[2021-04-15] MEDS: clonazePAM 0.5 MG TAB PO SCH ×3 (08:24→21:33)
[2021-04-15] MEDS: NICOTINE 21MG/24HR PATCH TRANSDERM SCH (08:24)
--- NOTE | 2021-04-15 10:17 | P.CONS ---
History of Present Illness - Reason for Consult Consult date: 04/15/21 Medical management Requesting physician: John Joya - History of Present Illness This is a 60-year-old male patient who is currently admitted to the mental health unit for suicidal ideation. Patient was originally admitted to medical floor and was discharged yesterday to the mental health unit for further treatment. She was originally admitted for heroin use and elevated troponin levels. During hospital stay patient underwent EGD for abnormal computed tomography scan as found to have mild gastritis. Biopsies of the duodenum and antrum and body obtained. Patient does have a past medical history of anxiety depression, hypertension, smoker, alcohol use, heroin use and marijuana use. Patient currently resting comfortably in bed in the mental health unit. Patient is on suicide cautions. Patient under psychiatry care. Patient denies any acute complaints at this time. Patient denies chest pain or shortness of breath. Patient denies nausea vomiting or diarrhea. Patient denies any urinary burning or frequency. Review of Systems please refer to HPI otherwise unremarkable Past Medical History Past Medical History: Hypertension History of Any Multi-Drug Resistant Organisms: None Reported Past Surgical History: Appendectomy, Joint Replacement, Orthopedic Surgery Smoking Status: Current every day smoker - Past Family History Father History Unknown: Yes Mother History Unknown: Yes Medications and Allergies Home Medications Medication Instructions Recorded Confirmed Type Escitalopram [Lexapro] 10 mg PO DAILY 06/03/16 04/15/21 History Gabapentin [Neurontin] 300 mg PO TID 06/03/16 04/15/21 History clonazePAM [KlonoPIN] 0.5 mg PO TID 06/03/16 04/15/21 History lisinopriL 40 mg PO DAILY 06/03/16 04/15/21 History Acetaminophen Tab [Tylenol] 500 mg PO Q6HR PRN tab 04/14/21 04/15/21 Rx Nicotine 21Mg/24Hr Patch [Habitrol] 1 patch TRANSDERM DAILY patch 04/14/21 04/15/21 Rx Nitroglycerin Sl Tabs [Nitrostat] 0.4 mg SUBLINGUAL Q5M PRN tab 04/14/21 04/15/21 Rx Pantoprazole [Protonix] 40 mg PO AC-BRKFST tablet. 04/14/21 04/15/21 Rx Thiamine [Vitamin B-1] 100 mg PO BID-W/MEALS tab 04/14/21 04/15/21 Rx Allergies Allergy/AdvReac Type Severity Reaction Status Date / Time No Known Allergies Allergy Verified 04/15/21 07:25 Physical Exam Vitals: Vital Signs Temp Pulse Resp BP Pulse Ox 04/15/21 08:41 96.6 F L 89 20 174/78 94 L 04/15/21 02:57 98.3 F 72 18 168/92 94 L Intake and Output 04/14/21 04/15/21 04/15/21 22:59 06:59 14:59 Other: Weight 54.885 kg Head normocephalic Neck supple Lungs clear to auscultation bilaterally no wheezing or crackles Heart regular rate and rhythm S1-S2, no rub or gallop Abdomen is soft nontender nondistended positive bowel sounds no hepatosplenomegaly Extremities no edema Neuro alert and orientated to 3 Assessment and Plan Assessment: 1. Suicidal ideation. Patient has been admitted to the mental health unit 2. Heroin use 3. History of abnormal computed tomography scan revealing abnormality in the antrum of the stomach. Patient recently underwent EGD showing gastritis biopsies obtained 4. Elevated liver enzymes secondary to alcohol use 5. Nicotine dependence. She was educated greater than 3 minutes on smoking cessation 6. History of EtOH 7. History of essential hypertension
--- NOTE | 2021-04-15 12:44 | P.HP ---
Psychiatric H&P - . H&P Date: 04/15/21 History & Physical: Allergies Allergy/AdvReac Type Severity Reaction Status Date / Time No Known Allergies Allergy Verified 04/15/21 07:25 Vital Signs Temp 96.6 F L 04/15/21 08:41 Pulse 89 04/15/21 08:41 Resp 20 04/15/21 08:41 BP 174/78 04/15/21 08:41 Pulse Ox 94 L 04/15/21 08:41 Intake & Output 04/14/21 04/15/21 04/15/21 18:59 06:59 18:59 Weight 54.885 kg Laboratory Last Values TSH 1.260 mIU/L (0.465-4.680) 04/14/21 09:31 04/15/21 12:32 Reason for admission: Patient stated he got stupid and used heroin to kill himself. History of present illness: Patient stated he feels down in the dumps and is a very depressed for a while. He stated he has no energy and does not sleep well. He stated he is suffering from anxiety and feels lightheaded and starts shaking and feels like he is going to pass out and has occasional short of breath. Past history: he stated he was never in a psychiatric hospital but he did receive treatment in outpatient. Family history: He stated he lives with her sister and her . He stated two of his uncles committed suicide successfully with the 1 shooting himself and other hanging himself. He stated there are a lot of alcoholics in the family. He stated mental illness runs in his family. Medical history: he stated he has hypertension and chronic cough because he smokes too much. Social history: He stated he grew up with his mother and father and 3 sisters. He dropped out in eighth grade from school because he was not able to read or write or to do math. He stated he has been working for last 11 years doing cla[employer] job. Medication history: He stated he takes medication for high blood pressure. Substance abuse history: He stated he was drinking alcohol every day up until 5 days ago. He stated he would also smoke marijuana if it was available to him. He stated he does not abuse opioids or does not use heroin and he just used it one time to kill himself. Suicide or homicidal thoughts: He stated he came and was admitted to Hospital because of suicidal thoughts. Legal history: He denied any involvement with law or police. ALLERGIES: He denies any history of ALLERGIES. Mental status examination: This patient appears to be off his stated age and his hygiene and grooming is very poor. He has adequate speech language and communication skills, however he does have articulation problems with his speech and speaks [place] in what looks like to be an accident but he is [place] born. His mood is depressed and affect is depressed as well his behavior is cooperative. He does not have any hallucinations or delusions. He does not have any flight of ideas or loose associations or any disorder of thought process. He is alert and oriented to time place and person. He was able to interpret simple proverbs. His insight into his problems is poor and his judgment is impaired. His impulse control is poor. His memory and other cognitive functions are intact. Diagnostic impression: Major depression recurrent with suicidal attempt Generalized anxiety disorder Alcohol abuse Nicotine dependence Articulation disorder Treatment recommendations: He will be prescribed a medication. He will be encouraged to participate in unit and milieu activities.
[2021-04-15 15:39] LABS: Hemoglobin A1C 5.7 % (4.0-6.0)
[2021-04-15 16:12] LABS: Appearance,Urine Clear (Clear); Bilirubin,Urine Negative (Negative); Blood,Urine Negative (Negative); Color,Urine Yellow; Glucose,Urine (UA) Negative (Negative); Ketones,Urine Negative (Negative); Leukocyte Esterase,Urine Negative (Negative); Nitrite,Urine Negative (Negative); Protein,Urine Negative (Negative); Specific Gravity,Urine 1.014 (1.001-1.035); Urobilinogen,Urine <2.0 mg/dL (<2.0)
[2021-04-15] MEDS: hydrALAZINE HCL 25 MG TAB PO SCH (21:33)
[2021-04-15 22:49] LABS: Urine Alcohol Negative (Negative); Urine Barbiturate Negative (Negative); Urine Cocaine Negative (Negative); Urine Methadone Negative (Negative); Urine Opiates Negative (Negative); Urine Phencyclidine Negative (Negative)
[2021-04-16 07:10] VITALS: RESP 16
[2021-04-16] MEDS: lisinopriL 20 MG TAB PO SCH (09:03)
[2021-04-16] MEDS: ESCITALOPRAM 10 MG TAB PO SCH (09:03)
[2021-04-16] MEDS: GABAPENTIN 300 MG CAP PO SCH ×3 (09:03→20:54)
[2021-04-16] MEDS: NICOTINE 21MG/24HR PATCH TRANSDERM SCH (09:03)
[2021-04-16] MEDS: clonazePAM 0.5 MG TAB PO SCH (09:03)
[2021-04-16] MEDS: THIAMINE 100 MG TAB PO SCH ×2 (09:04→17:22)
[2021-04-16] MEDS: hydrALAZINE HCL 25 MG TAB PO SCH ×2 (09:04→20:55)
[2021-04-16] MEDS: PANTOPRAZOLE 40 MG TABLET PO SCH (09:04)
--- NOTE | 2021-04-16 11:49 | P.PN ---
Progress Note - Text Progress Note Date: 04/16/21 Interval History: Patient was seen wandering the hallways and was directable and agreeable to sp kentrell with sign writer letterer or painter in the office. Patient was fairly pleasant and cooperative with sign writer letterer or painter today. He spoke about feeling "down in the dumps" spoke with significant depression and alcohol use. He states that he was feeling overwhelmed and depressed and wanted to end his life by overdosing on heroin. He states that he does not regularly use heroin. He claims that he is doing a bit better however continues to state that he is feeling anxious and depressed. He states that he is not ready to go home at this time and feels unsafe. He claims that he has been sleeping better and eats fairly during the day. He does claim that he feels tired during the day. Scanning Coordinator spoke with patient about his Klonopin and the need to have it reduced and patient was agreeable to that. At this time patient denies any current suicidal or homical ideations, intent or plan. Patient denies any auditory, visual hallucinations and denies any paranoia or delusions. Patient denies any side effects from the medications and has been compliant with meds. Mental Status Exam: General Appearance: Patient appears to be in, older than stated age is alert, directable, and cooperative. Behavior: Patient is calmly seated without any agitated behavior. Speech: Patient's speech is fluent and nonpressured. Mood/Affect: Mood is depressed and anxious, affect is congruent and constricted. Suicidality/Homicidality: Patient denies having any suicidal or homicidal ideation intent or plan. Perceptions: Patient denies any visual hallucinations and denies any auditory hallucinations Though content/process: Rambles, logical and goal oriented. Focused on his stressors and depression. Memory and concentration: AOX3, grossly intact for the purposes of this session Judgment and insight: poor, Improving mildly Assessment Major depression recurrent, severe without psychotic features Generalized anxiety disorder Alcohol abuse Nicotine dependence Plan: -Patient continues to meet criteria for inpatient psychiatric admission for symptom stabilization and safety. Patient has signed adult voluntary form and medication consent and was placed in patient's chart. -Medications: Increased lexapro to 20 mg daily for mood/anxiety. Decrease Klonopin to 0.5 mg daily at bedtime for anxiety with the plan to continue tapering off -Continue to monitor for alcohol withdrawal symptoms however patient is past the withdrawal window at this time and denies any history of DTs. -When necessary Ativan and Haldol for agitation/aggression. -NRT - nicotine patch -SW on board for discharge planning. Encouraged the patient to participate in milieu. Patient is declining rehab at this time and wants to do a meetings instead. He will likely be discharged to his sister's house. Likely discharge in 2-3 days.
[2021-04-16] MEDS: ACETAMINOPHEN TAB 500 MG TAB PO PRN (20:55)
[2021-04-16] MEDS ORDERED: clonazePAM 0.5 MG TAB PO SCH (21:00)
[2021-04-17] MEDS: GABAPENTIN 300 MG CAP PO SCH ×3 (08:27→21:20)
[2021-04-17] MEDS: THIAMINE 100 MG TAB PO SCH ×2 (08:58→17:25)
[2021-04-17] MEDS: ESCITALOPRAM 20 MG TAB PO SCH (08:58)
[2021-04-17] MEDS: NICOTINE 21MG/24HR PATCH TRANSDERM SCH (08:58)
[2021-04-17] MEDS: lisinopriL 20 MG TAB PO SCH (08:59)
[2021-04-17] MEDS: PANTOPRAZOLE 40 MG TABLET PO SCH (08:59)
[2021-04-17] MEDS: ACETAMINOPHEN TAB 500 MG TAB PO PRN ×2 (10:21→22:15)
[2021-04-17] MEDS: hydrALAZINE HCL 25 MG TAB PO SCH (10:25)
--- NOTE | 2021-04-17 11:05 | P.PN ---
Progress Note - Text Progress Note Date: 04/17/21 Interval History: Patient was seen wandering the hallways and was directable and agreeable to sp urielk with rewriter in the office. Patient was fairly pleasant and cooperative with rewriter today. He spoke about speaking with his daughter yesterday and claims that he will be able to stay with her upon discharge. He states that he continues to feel ongoing improvement in his mood and anxiety while on the unit. He claims that he has been trying to go to groups and participate as best as he can. He states that he really wants to work on his sobriety when he is discharged however claims that he does not want to go to rehab. He claims that he was able to sleep fairly throughout the night however claims that he feels groggy in the morning. Lens Polisher spoke to patient about his Klonopin and the need to discontinue it and patient was okay with having ever placed with melatonin for tonight. He states that his energy level today is a bit better than yesterday. At this time patient denies any current suicidal or homical ideations, intent or plan. Patient denies any auditory, visual hallucinations and denies any paranoia or delusions. Patient denies any side effects from the medications and has been compliant with meds. Mental Status Exam: General Appearance: Patient appears to be in, older than stated age is alert, directable, and cooperative. Behavior: Patient is calmly seated without any agitated behavior. Speech: Patient's speech is fluent and nonpressured. Mood/Affect: Mood is improving mildly, affect is congruent Suicidality/Homicidality: Patient denies having any suicidal or homicidal ideation intent or plan. Perceptions: Patient denies any visual hallucinations and denies any auditory hallucinations Though content/process: Rambles, logical and goal oriented. More future oriented today. Memory and concentration: AOX3, grossly intact for the purposes of this session Judgment and insight: Improving mildly Assessment Major depression recurrent, severe without psychotic features Generalized anxiety disorder Alcohol abuse Nicotine dependence Plan: -Patient continues to meet criteria for inpatient psychiatric admission for symptom stabilization and safety. Patient has signed adult voluntary form and medication consent and was placed in patient's chart. -Medications: Continue Lexapro 20 mg daily for mood/anxiety. d/c klonopin today. added melatonin 5mg qhs for insomnia -Continue to monitor for alcohol withdrawal symptoms however patient is past the withdrawal window at this time and denies any history of DTs. -When necessary Ativan and Haldol for agitation/aggression. -NRT - nicotine patch -SW on board for discharge planning. Encouraged the patient to participate in milieu. Patient is declining rehab at this time and wants to do AA meetings instead. He will likely be discharged to his daughters house tomorrow is patient does well today and tomorrow.
[2021-04-17] MEDS: hydrALAZINE HCL 50 MG TAB PO SCH ×3 (12:21→21:22)
[2021-04-17] MEDS ORDERED: MELATONIN 5 MG TABLET PO SCH (21:00)
[2021-04-18 06:56] VITALS: TEMP 97.2
[2021-04-18] MEDS: NICOTINE 21MG/24HR PATCH TRANSDERM SCH (08:47)
[2021-04-18] MEDS: GABAPENTIN 300 MG CAP PO SCH ×2 (08:47→15:49)
[2021-04-18] MEDS: ESCITALOPRAM 20 MG TAB PO SCH (08:47)
[2021-04-18] MEDS: PANTOPRAZOLE 40 MG TABLET PO SCH (08:47)
[2021-04-18] MEDS: THIAMINE 100 MG TAB PO SCH (08:47)
[2021-04-18] MEDS: lisinopriL 20 MG TAB PO SCH (08:48)
[2021-04-18] MEDS: hydrALAZINE HCL 50 MG TAB PO SCH ×2 (08:48→15:50)
--- NOTE | 2021-04-18 10:08 | P.DS ---
Providers Date of admission: 04/15/21 02:07 Expected date of discharge: 04/18/21 Attending physician: Cornelius Yates MD Consults: 04/15/21 03:16 Consult Physician Routine Consulting Provider: Kyra Sumner Consult Reason/Comments: For H & P for Medical Follow Up Do you want consulting provider notified?: Yes, Notify in am Primary care physician: Kyra Sumner - Discharge Diagnosis(es) (1) Major depressive disorder, recurrent severe without psychotic features Current Visit: Yes Status: Acute Priority: High (2) Generalized anxiety disorder Current Visit: Yes Status: Acute Priority: Medium (3) Alcohol abuse Current Visit: Yes Status: Acute Priority: Medium (4) Nicotine dependence Current Visit: Yes Status: Acute Priority: Low Hospital Course: Admission HPI: Admission note was completed by Dr. Joya "Patient stated he got stupid and used heroin to kill himself. History of present illness: Patient stated he feels down in the dumps and is a very depressed for a while. He stated he has no energy and does not sleep well. He stated he is suffering from anxiety and feels lightheaded and starts shaking and feels like he is going to pass out and has occasional short of breath. he stated he was never in a psychiatric hospital but he did receive treatment in outpatient." Hospital course: Upon admission to the unit patient was initially depressed and suicidal. Patient was however directable and agreeable to commence treatment and signed adult voluntary form. Patient got along well with other patients on the unit and followed unit protocol. Patient was compliant with the medications and denied any side effects throughout hospital course. Patient was started on Lexapro and titrated up to dose of 20 mg daily for mood/anxiety. Due to patient's alcohol abuse, medical writer spoke with patient about the dangers and risks of being on Klonopin and other benzodiazepines and patient was agreeable to have this titrated off. Patient was started on melatonin and titrated up to dose of 10 mg daily at bedtime for insomnia. Patient spoke of his stressors and engaged in therapy both group and individual. Patient was also seen by medical team for history and physical exam. Throughout the course of the hospitalization patient gradually improved with regards to mood, anxiety, sleep and became more future oriented with improved insight and judgment. On the day of discharge patient denied any suicidal or homicidal ideations intent or plan denied any auditory or visual hallucinations. Patient endorsed wanting to live for his health and family. The patient denied any access to guns or weapons. Patient denied any paranoia and did not endorse any delusions. Patient does have a significant history of substance abuse and was counseled on abstaining from all substances including alcohol and marijuana. Patient was offered however declined inpatient substance-abuse rehab. Patient elected to do outpatient substance use treatment. Patient was also counseled on the medications and need for regular compliance and was encouraged to follow-up with their outpatient appointment for mental health and also for primary care. Prior to discharge a family meeting will be arranged by social sciences chair to answer any questions and ensure safety upon discharge. Mental status exam: General Appearance: Patient appears to be thin, stated age is alert, pleasant, and cooperative. Patient is in no acute distress and has improved hygiene and grooming Behavior: Patient is calmly seated without any agitated behavior. Speech: Patient's speech is fluent and nonpressured. Mood/Affect: Patient reports their mood is "better", affect is congruent and euthymic. Suicidality/Homicidality: Patient denies having any suicidal or homicidal ideation intent or plan. Perceptions: Patient denies any auditory or visual hallucinations. Though content/process: There is no evidence of any delusional thought content and thought process is linear and goal-directed. more future oriented Memory and concentration: AOX3, grossly intact for the purposes of this session. Can spell "WORLD" backwards correctly. Judgment and insight: chronically poor, however has improved with guarded prognosis Impression: Major depressive disorder, severe without psychotic features Generalized anxiety disorder Alcohol abuse Nicotine dependence Plan: -Continue with discharge today as patient has improved and stabilized psychiatrically and is not currently an imminent threat to himself and/or others. Patient will remain at chronically elevated risk for harm to self and/or others due to his impulsivity and substance abuse. -Continue medications: Lexapro 20 mg daily for mood/anxiety, melatonin 10 mg daily at bedtime for insomnia. Discontinued Klonopin due to patient's continued use of alcohol and abuse. -Patient was counseled on the need for medication compliance and appropriate follow-up at mental health and also primary care for medical issues. Patient verbalized understanding and agreed. -Social work to arrange for and conduct family meeting to ensure safety upon discharge and answer any questions/concerns. Social work also to arrange for patients follow up appointments for psychiatric care along with follow up with primary care provider. -Patient counseled on abstaining from recreational drugs and marijuana and alcohol. Was informed/educated on the adverse effects on their physical and me ntal health. Patient verbally agreed and understood. Patient was offered substance abuse treatment however declined at this time. -Patient was instructed to return to the hospital or seek immediate medical care if their psychiatric or medical symptoms do worsen or reoccur. Allergies Allergy/AdvReac Type Severity Reaction Status Date / Time No Known Allergies Allergy Verified 04/16/21 10:[address] Glu mg/dL 117 04/14/21 09:31 Hemoglobin A1c 5.7 % (4.0-6.0) 04/14/21 09:31 TSH 1.260 mIU/L (0.465-4.680) 04/14/21 09:31 Urine Color Yellow 04/15/21 16:04 Urine Appearance Clear (Clear) 04/15/21 16:04 Urine pH 6.0 (5.0-8.0) 04/15/21 16:04 Ur Specific [place] 1.014 (1.001-1.035) 04/15/21 16:04 Urine Protein Negative (Negative) 04/15/21 16:04 Urine Glucose (UA) Negative (Negative) 04/15/21 16:04 Urine Ketones Negative (Negative) 04/15/21 16:04 Urine Blood Negative (Negative) 04/15/21 16:04 Urine Nitrite Negative (Negative) 04/15/21 16:04 Urine Bilirubin Negative (Negative) 04/15/21 16:04 Urine Urobilinogen <2.0 mg/dL (<2.0) 04/15/21 16:04 Ur Leukocyte Esterase Negative (Negative) 04/15/21 16:04 Urine Opiates Screen Negative ng/mL (Negative) 04/15/21 16:04 Urine Methadone Screen Negative ng/mL (Negative) 04/15/21 16:04 Ur Propoxyphene Screen Negative ng/mL (Negative) 04/15/21 16:04 Urine Barbiturates Negative ng/mL (Negative) 04/15/21 16:04 Ur Phencyclidine Scrn Negative ng/mL (Negative) 04/15/21 16:04 Ur Amphetamine Screen Negative ng/mL (Negative) 04/15/21 16:04 U Benzodiazepines Scrn Negative ng/mL (Negative) 04/15/21 16:04 Urine Cocaine Screen Negative ng/mL (Negative) 04/15/21 16:04 U Cannabinoids Screen Negative ng/mL (Negative) 04/15/21 16:04 Urine Alcohol Negative mg/dL (Negative) 04/15/21 16:04 Vital Signs Temp 97.2 F L 04/18/21 06:17 Pulse 78 04/18/21 06:17 Resp 16 04/18/21 06:17 BP 176/77 04/18/21 06:17 Pulse Ox 96 04/17/21 09:03 Patient Condition at Discharge: Stable Plan - Discharge Summary Discharge Rx Participant: No New Discharge Prescriptions: New hydrALAZINE HCL [Apresoline] 50 mg PO TID 30 Days tab Nicotine 21Mg/24Hr Patch [Habitrol] 1 patch TRANSDERM DAILY 30 Days patch Melatonin 10 mg PO HS 30 Days tablet Escitalopram [Lexapro] 20 mg PO DAILY 30 Days tab lisinopriL [Zestril] 40 mg PO DAILY 40 Days tab Continue Gabapentin [Neurontin] 300 mg PO TID Thiamine [Vitamin B-1] 100 mg PO BID-W/MEALS 30 Days tab Nitroglycerin Sl Tabs [Nitrostat] 0.4 mg SUBLINGUAL Q5M PRN #7 tab PRN Reason: Chest Pain Pantoprazole [Protonix] 40 mg PO AC-BRKFST 30 Days tablet.dr Discontinued clonazePAM [KlonoPIN] 0.5 mg PO TID lisinopriL 40 mg PO DAILY Escitalopram [Lexapro] 10 mg PO DAILY Nicotine 21Mg/24Hr Patch [Habitrol] 1 patch TRANSDERM DAILY patch Acetaminophen Tab [Tylenol] 500 mg PO Q6HR PRN tab PRN Reason: Fever And/ Or Pain Discharge Medication List Gabapentin [Neurontin] 300 mg PO TID 06/03/16 [History] Escitalopram [Lexapro] 20 mg PO DAILY 30 Days tab 04/18/21 [Rx] Melatonin 10 mg PO HS 30 Days tablet 04/18/21 [Rx] Nicotine 21Mg/24Hr Patch [Habitrol] 1 patch TRANSDERM DAILY 30 Days patch 04/18/21 [Rx] Nitroglycerin Sl Tabs [Nitrostat] 0.4 mg SUBLINGUAL Q5M PRN #7 tab 04/18/21 [Rx] Pantoprazole [Protonix] 40 mg PO SHIMONKFST 30 Days tablet. 04/18/21 [Rx] Thiamine [Vitamin B-1] 100 mg PO BID-W/MEALS 30 Days tab 04/18/21 [Rx] hydrALAZINE HCL [Apresoline] 50 mg PO TID 30 Days tab 04/18/21 [Rx] lisinopriL [Zestril] 40 mg PO DAILY 40 Days tab 04/18/21 [Rx] Follow up Appointment(s)/Referral(s): [facility] [Outside] - 04/20/21 9:30 am (with [facility] in person) Activity/Diet/Wound Care/Special Instructions: Activity and diet as tolerated. Avoid the use of street drugs and alcohol. Take all medications as prescribed. When you are in need of refills on your medications please contact your medical provider and/or outpatient psychiatrist to have this done. Please go to scheduled outpatient appointment for aftercare treatment. If symptoms return or become worse, call the crisis line at and/or go to the nearest emergency room for evaluation. Discharge Disposition: HOME SELF-CARE
[2021-04-18] MEDS ORDERED: carvediloL 3.125 MG TAB PO SCH (10:30)
--- NOTE | 2021-04-18 11:33 | P.PN ---
Subjective Progress Note Date: 04/18/21 This is a 60-year-old male patient who is currently admitted to the mental health unit for suicidal ideation. Patient was originally admitted to medical floor and was discharged yesterday to the mental health unit for further treatment. She was originally admitted for heroin use and elevated troponin le vels. During hospital stay patient underwent EGD for abnormal computed tomography scan as found to have mild gastritis. Biopsies of the duodenum and antrum and body obtained. Patient does have a past medical history of anxiety depression, hypertension, smoker, alcohol use, heroin use and marijuana use. Patient currently resting comfortably in bed in the mental health unit. Patient is on suicide cautions. Patient under psychiatry care. Patient denies any acute complaints at this time. Patient denies chest pain or shortness of breath. Patient denies nausea vomiting or diarrhea. Patient denies any urinary burning or frequency. On 04/18/2021 patient having increased blood pressure. Patient was restarted on hydralazine and lisinopril during hospitalization. Blood pressure the same 192/80 heart rate 70s 80s Coreg 3.125 mg twice a day added prescription sent to pharmacy. Patient has been started on hydralazine, lisinopril and Coreg. Patient educated on the importance of medication compliance. Patient to follow- up with PCP 1-2 days. At this time patient denies chest pain or shortness of breath. Patient denies nausea vomiting or diarrhea. Patient denies any urinary burning or frequency. Objective - Vital Signs Vital signs: Vital Signs Temp 97.2 F L 04/18/21 06:17 Pulse 78 04/18/21 06:17 Resp 16 04/18/21 06:17 BP 176/77 04/18/21 06:17 Pulse Ox 96 04/17/21 09:03 - Exam Head normocephalic Neck supple Lungs clear to auscultation bilaterally no wheezing or crackles Heart regular rate and rhythm S1-S2, no rub or gallop Abdomen is soft nontender nondistended positive bowel sounds no hepatosplenomegaly Extremities no edema Neuro alert and orientated to 3 Assessment and Plan Assessment: 1. Suicidal ideation. Patient has been admitted to the mental health unit 2. Heroin use 3. History of abnormal computed tomography scan revealing abnormality in the antrum of the stomach. Patient recently underwent EGD showing gastritis biopsies obtained 4. Elevated liver enzymes secondary to alcohol use 5. Nicotine dependence. She was educated greater than 3 minutes on smoking cessation 6. History of EtOH 7. History of essential hypertension during hospital patient patient has been started on hydralazine, Coreg and lisinopril. Patient educated on medication compliance and patient will need close follow-up PCP for further management
[2021-04-18 15:52] VITALS: BP 197/86; PULSE 60
[2021-04-18] MEDS ORDERED: MELATONIN 5 MG TABLET PO SCH (21:00)
== END 2021-04-18 16:07 | disposition home or self-care (01) | DRG 885 ==
LOC: 3MHU 02:07
PROVIDERS: ADMIT Psychiatry & Neurology Psychiatry; ATTEND Psychiatry & Neurology Psychiatry
DX: F33.2 Major depressive disorder, recurrent severe without psychotic features (principal); F10.10 Alcohol abuse, uncomplicated; F11.90 Opioid use, unspecified, uncomplicated; F12.90 Cannabis use, unspecified, uncomplicated; F17.200 Nicotine dependence, unspecified, uncomplicated; F41.1 Generalized anxiety disorder; G47.00 Insomnia, unspecified; I10 Essential (primary) hypertension; K29.70 Gastritis, unspecified, without bleeding; T40.1X2A Poisoning by heroin, intentional self-harm, initial encounter; Z79.899 Other long term (current) drug therapy; Z82.49 Family history of ischemic heart disease and other diseases of the circulatory system
CPT/HCPCS: 80306; 81003; 83036; 84443

== ENCOUNTER 2024-03-30 17:30 | Emergency (ER) | payer OTHER ==
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
[2024-03-30] MEDS: LIDOCAINE 4% PATCH TOPICAL ONE (19:13)
[2024-03-30 20:10] VITALS: BP 166/76; PULSE 67; RESP 20; TEMP 97.9
== END 2024-03-30 19:35 | disposition home or self-care (01) ==
LOC: EC 17:30
DX: R07.81 Pleurodynia (principal); F17.210 Nicotine dependence, cigarettes, uncomplicated; X50.1XXA Overexertion from prolonged static or awkward postures, initial encounter
CPT/HCPCS: 99283; 99406

== ENCOUNTER 2024-10-31 22:04 | Emergency (ER) | payer OTHER ==
[2024-10-31 22:15] VITALS: TEMP 97.2
--- NOTE | 2024-10-31 22:41 | ED ---
Lower Extremity Injury HPI - General Chief Complaint: Extremity Injury, Lower Stated Complaint: Left foot injury Time Seen by Provider: 10/31/24 22:20 Source: patient, RN notes reviewed, old records reviewed Mode of arrival: ambulatory Limitations: no limitations - History of Present Illness Initial Comments: This is a 64-year-old male to the ER for evaluation of left ankle pain. Patient states he fell while getting out of a tree while attempting to rescue a cat. Patient is complaining of left ankle pain that is persistent here in the ER pain on the left side of his left ankle to his anterior foot MD Complaint: ankle injury, fall -: hour(s) Injury: Ankle: Left Type of Injury: inversion Place: home Severity: mild Severity scale (1-10): 2 Worsens With: weight bearing Context: fall Treatments Prior to Arrival: other (0) - Related Data Home Medications Medication Instructions Recorded Confirmed Gabapentin [Neurontin] 300 mg PO TID 06/03/16 04/15/21 Previous Rx's Medication Instructions Recorded Escitalopram [Lexapro] 20 mg PO DAILY 30 Days tab 04/18/21 Melatonin 10 mg PO HS 30 Days tablet 04/18/21 Nicotine 21Mg/24Hr Patch [Habitrol] 1 patch TRANSDERM DAILY 30 Days 04/18/21 patch Nitroglycerin Sl Tabs [Nitrostat] 0.4 mg SUBLINGUAL Q5M PRN #7 tab 04/18/21 Pantoprazole [Protonix] 40 mg PO AC-BRKFST 30 Days 04/18/21 tablet. Thiamine [Vitamin B-1] 100 mg PO BID-W/MEALS 30 Days tab 04/18/21 carvediloL [Coreg] 3.125 mg PO BID 30 Days tablet 04/18/21 hydrALAZINE HCL [Apresoline] 50 mg PO TID 30 Days tab 04/18/21 lisinopriL [Zestril] 40 mg PO DAILY 40 Days tab 04/18/21 Lidocaine 5% Patch [Lidoderm 5% 1 patch TOPICAL DAILY #10 patch 03/30/24 Patch] Allergies Allergy/AdvReac Type Severity Reaction Status Date / Time No Known Allergies Allergy Verified 10/31/24 22:14 Review of Systems ROS Statement: Those systems with pertinent positive or pertinent negative responses have been documented in the HPI. ROS Other: All systems not noted in ROS Statement are negative. Past Medical History Past Medical History: Hypertension History of Any Multi-Drug Resistant Organisms: None Reported Past Surgical History: Appendectomy, Joint Replacement, Orthopedic Surgery Past Psychological History: Anxiety, Depression Smoking Status: Current every day smoker Past Alcohol Use History: Abuse, Occasional Past Drug Use History: Heroin, Marijuana - Past Family History Father History Unknown: Yes Mother History Unknown: Yes General Exam Limitations: no limitations General appearance: alert, in no apparent distress Head exam: Present: atraumatic, normocephalic, normal inspection Eye exam: Present: normal appearance, PERRL, EOMI. Absent: scleral icterus, conjunctival injection, periorbital swelling ENT exam: Present: normal exam, mucous membranes moist Neck exam: Present: normal inspection. Absent: tenderness, meningismus, lymphadenopathy Respiratory exam: Present: normal lung sounds bilaterally. Absent: respiratory distress, wheezes, rales, rhonchi, stridor Cardiovascular Exam: Present: regular rate, normal rhythm, normal heart sounds. Absent: systolic murmur, diastolic murmur, rubs, gallop, clicks GI/Abdominal exam: Present: soft, normal bowel sounds. Absent: distended, tenderness, guarding, rebound, rigid Extremities exam: Present: normal inspection, full ROM, normal capillary refill. Absent: tenderness, pedal edema, joint swelling, calf tenderness Back exam: Present: normal inspection Neurological exam: Present: alert, oriented X3, CN II-XII intact Psychiatric exam: Present: normal affect, normal mood Skin exam: Present: warm, dry, intact, normal color. Absent: rash Course Vital Signs 10/31/24 22:11 Temperature 97.2 F L Pulse Rate 73 Respiratory 18 Rate Blood Pressure 160/78 O2 Sat by Pulse 99 Oximetry - Reevaluation(s) Reevaluation #1: 10/31/24 22:50 Medical records reviewed Reevaluation #2: 10/31/24 23:03 Patient's pain is improved Reevaluation #3: 10/31/24 23:03 Patient informed of results questions answered Reevaluation #4: Was pt. sent in by a medical professional or institution (, PA, UNIFORM MAKER, urgent care, hospital, or care home...) When possible be specific @ -no Did you speak to anyone other than the patient for history (EMS, parent, family, police, friend...)? What history was obtained from this source @ -no Did you review nursing and triage notes (agree or disagree)? Why? @ -agree Are old charts reviewed (outside hosp., previous admission, EMS record, old EKG, old radiological studies, urgent care reports/EKG's, care home records)? Report findings @ -yes Differential Diagnosis (chest pain, altered mental status, abdominal pain women, abdominal pain men, vaginal bleeding, weakness, fever, dyspnea, syncope, headache, dizziness, GI bleed, back pain, seizure, CVA, palpatations, mental health, musculoskeletal)? @ -prior EKG interpreted by me (3pts min.). @ -yes X-rays interpreted by me (1pt min.). @ -yes negative for acute disease CT interpreted by me (1pt min.). @ -no U/S interpreted by me (1pt. min.). @ -no What testing was considered but not performed or refused? (CT, X-rays, U/S, labs)? Why? @ -none What meds were considered but not given or refused? Why? @ -none Did you discuss the management of the patient with other professionals (professionals i.e. , PA, UNIFORM MAKER, lab, RT, psych nurse, social science instructor, bronze plater, teacher, chief supply chain officer, child welfare caseworker)? Give summary @ -no Was smoking cessation discussed for >3mins.? @ -no Was critical care preformed (if so, how long)? @ -no Were there social determinants of health that impacted care today? How? (Homelessness, low income, unemployed, alcoholism, drug addiction, transportation, low edu. Level, literacy, decrease access to med. care, care home, rehab)? @ -none Was there de-escalation of care discussed even if they declined (Discuss DNR or withdrawal of care, Hospice)? DNR status @ -no What co-morbidities impacted this encounter? (DM, HTN, Smoking, COPD, CAD, Cancer, CVA, ARF, Chemo, Hep., AIDS, mental health diagnosis, sleep apnea, morbid obesity)? @ -none Was patient admitted / discharged? Hospital course, mention meds given and route, prescriptions, significant lab abnormalities, going to OR and other pertinent info. @ - Undiagnosed new problem with uncertain prognosis? @ -no Drug Therapy requiring intensive monitoring for toxicity (Heparin, Nitro, Insulin, Cardizem)? @ -no Were any procedures done? @ -no Diagnosis/symptom? @ - Acute, or Chronic, or Acute on Chronic? @ -Acute Uncomplicated (without systemic symptoms) or Complicated (systemic symptoms)? @ -Complicated Side effects of treatment? @ -no Exacerbation, Progression, or Severe Exacerbation? @ -exacerbation Poses a threat to life or bodily function? How? (Chest pain, [place], [place], pneumonia, PE, COPD, DKA, ARF, appy, cholecystitis, CVA, Diverticulitis, Homicidal, Suicidal, threat to staff... and all critical care pts) @ -yes Medical Decision Making - Medical Decision Making 64 male with left ankle pain. Left ankle sprain, no acute findings here in the ER x-ray negative for fracture patient can be discharged home, patient does have good pulses and good blood flow - Radiology Data Radiology results: report reviewed (X-ray left ankle negative for acute disease), image reviewed Disposition Clinical Impression: Left ankle sprain, Fall Disposition: HOME SELF-CARE Instructions (If sedation given, give patient instructions): Ankle Sprain (ED) Is patient prescribed a controlled substance at d/c from ED?: No Referrals: Ruddy Gonzales MD [Primary Care Provider] - 1-2 days Time of Disposition: 23:05
[2024-10-31] MEDS: ACETAMINOPHEN TAB 500 MG TAB PO STA (22:51)
[2024-10-31] MEDS: IBUPROFEN 600 MG STARTER PACK 4 TAB BTL PO STA (22:51)
[2024-10-31] MEDS: IBUPROFEN 600 MG TAB PO STA (22:52)
[2024-10-31 23:15] VITALS: BP 198/77; PULSE 60; RESP 16
--- NOTE | 2024-11-01 00:06 | XR ---
EXAM: XR Left Ankle Complete, 3 or More Views CLINICAL HISTORY: ITS.REASON XR Reason: pain TECHNIQUE: Frontal, lateral and oblique views of the left ankle. COMPARISON: No previous studies. FINDINGS: Bones/joints: Ankle mortise is preserved. No acute fracture or dislocation. Soft tissues: Soft tissues are unremarkable. IMPRESSION: No acute fracture or dislocation.
== END 2024-10-31 23:45 | disposition home or self-care (01) ==
LOC: EC 22:04
DX: S93.402A Sprain of unspecified ligament of left ankle, initial encounter (principal); F17.200 Nicotine dependence, unspecified, uncomplicated; W19.XXXA Unspecified fall, initial encounter
CPT/HCPCS: 99283